=== PATIENT | female | born 1960 | race Caucasian/White ===

== ENCOUNTER 2017-03-12 11:08 | Outpatient (CLI) | payer OTHER | END 2017-03-12 11:09 | disposition critical access hospital (66) | DX: S06.9X9A Unspecified intracranial injury with loss of consciousness of unspecified duration, initial encounter (principal); M25.551 Pain in right hip; W20.8XXA Other cause of strike by thrown, projected or falling object, initial encounter; W18.39XA Other fall on same level, initial encounter; Y92.212 Middle school as the place of occurrence of the external cause; Y99.0 Civilian activity done for income or pay | CPT/HCPCS: A0425; A0429 ==

== ENCOUNTER 2017-03-12 11:27 | Emergency (ER) | payer OTHER ==
--- NOTE | 2017-03-12 11:31 | ED Physician Documentation ---
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 and it knocked wall chalkboard down and struck patient in evelyn) Where head injury occurred: Work Timing - onset: How many minutes ago (20) Location of injury: Front Symptoms improve with: Rest Similar symptoms before: Diagnosis, No diagnosis, Work up / diagnostics, Treatment, Follow up, Has not had sx before, Other Recently seen: Clinic, Emergency Dept, Admitted, Surgery, Transferred, Not recently seen, Other PD PAST MEDICAL HISTORY - Past Medical History Cardiovascular: None - Present Medications Home Medications: Ambulatory Orders Medication Instructions Recorded Confirmed Methocarbamol [Robaxin] 500 mg PO TID PRN #25 tablet 03/12/17 Nadolol 03/12/17 - Allergies Allergies/Adverse Reactions: Allergies Allergy/AdvReac Type Severity Reaction Status Date / Time epinephrine AdvReac Unknown Verified 03/12/17 11:37 PD ED PE NORMAL - Vitals Vital signs reviewed: Yes - General General: Alert and oriented X 3, No acute distress, Well developed/nourished - HEENT HEENT: PERRL, EOMI, Other (focal swelling in rounded lump left upper occiputal area. 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 ), considered differential (does sound slightly concussive with brief LOC and then confused/lightheaded for a few minutes at most. ), d/w patient Departure - Departure Disposition: 01 Home, Self Care Clinical Impression: Struck accidentally by falling object Qualifiers: Encounter type: initial encounter Qualified Code(s): W20.8XXA - Other cause of strike by thrown, projected or falling object, initial encounter Scalp contusion Qualifiers: Encounter type: initial encounter Qualified Code(s): S00.03XA - Contusion of scalp, initial encounter Mild concussion Qualifiers: Encounter type: initial encounter Loss of consciousness presence/duration: with LOC of 30 min or less Qualified Code(s): S06.0X1A - Concussion with loss of consciousness of 30 minutes or less, initial encounter Cervical strain, acute Qualifiers: Encounter type: initial encounter Qualified Code(s): S16.1XXA - Strain of muscle, fascia and tendon at neck level, initial encounter Condition: Stable Record reviewed to determine appropriate education?: Yes Instructions: ED Concussion, ED Sprain Strain Neck Prescriptions: Methocarbamol [Robaxin] 500 mg PO TID PRN #25 tablet PRN Reason: Spasms Comments: Stepwise return to activity with light activity/walking today, then up through brisk walking, light aerobic, then full aerobic over several days. Tylenol or Ibuprofen as needed for pains. Drink lots of fluids. Heat and gentle stretching for neck muscles. Add Robaxin muscle relaxant if needed for stiffness. Forms: Activity restrictions Discharge Date/Time: 03/12/17 13:18
[2017-03-12] MEDS ORDERED: ACETAMINOPHEN 325 MG TABLET PO STA (11:47)
[2017-03-12] MEDS ORDERED: IBUPROFEN 600 MG TABLET PO STA (11:47)
[2017-03-12] MEDS ORDERED: IBUPROFEN 600 MG TABLET PO ONE (11:50)
[2017-03-12] MEDS ORDERED: ACETAMINOPHEN 325 MG TABLET PO ONE (11:50)
--- NOTE | 2017-03-12 12:28 | CT Preliminary Report ---
Exam: CT Head W/O IMPRESSION: Normal head CT. [facility] SITE ID: [id number]
--- NOTE | 2017-03-12 12:31 | CT Report ---
EXAM: CT HEAD EXAM DATE: 03/12/2017 12:17 PM. CLINICAL HISTORY: Struck in head by dryerase board. Now with dizziness COMPARISON: None. TECHNIQUE: Multiaxial CT images were obtained from the foramen magnum to the vertex. IV contrast: Non e. Reformats: Coronal. In accordance with CT protocol optimization, one or more of the following dose reduction techniques w ere utilized for this exam: automated exposure control, adjustment of mA and/or KV based on patient s ize, or use of iterative reconstructive technique. FINDINGS: Parenchyma: No intraparenchymal hemorrhage. No evidence of mass, midline shift, or CT findings of inf arction. French-white differentiation is distinct. Extraaxial Spaces: Normal for age. No subdural or epidural collections identified. Ventricles: Normal in size and position. Sinuses: Imaged paranasal sinuses, orbits, and mastoids show no significant abnormality. Bones: No evidence of fracture or calvarial defect. Other: None. IMPRESSION: Normal head CT. [facility] Referring Provider Line: [phone] SITE ID: [id number]
--- NOTE | 2017-03-12 12:32 | CT Preliminary Report ---
Exam: CT Cervical Spine W/O IMPRESSION: No cervical spine fracture or listhesis. [facility] SITE ID: [id number]
--- NOTE | 2017-03-12 12:35 | CT Report ---
EXAM: CT CERVICAL SPINE WITHOUT CONTRAST DATE: 03/12/2017 12:18 PM HISTORY: Struck in head with dryerase board. Now with dizziness. COMPARISONS: None. TECHNIQUE: Thin-section axial images were acquired of the cervical spine without contrast. Post-proce ssing: Coronal and sagittal reformats. Other: None. In accordance with CT protocol optimization, one or more of the following dose reduction techniques w ere utilized for this exam: automated exposure control, adjustment of mA and/or KV based on patient s ize, or use of iterative reconstructive technique. FINDINGS: Alignment: Normal. No scoliosis or spondylolisthesis. Bones: No fracture or bone lesion. Interspace Levels/Facets: C1-C2: Unremarkable. C2-C3: Unremarkable. C3-C4: Unremarkable. C4-C5: Unremarkable. C5-C6: Degenerative disk disease. C6-C7: Unremarkable. C7-T1: Unremarkable. Musculature: Normal. No fatty atrophy. Other: The paravertebral and prevertebral soft tissues are normal. The lung apices are clear. IMPRESSION: No cervical spine fracture or listhesis. [facility] Referring Provider Line: [phone] SITE ID: [id number]
[2017-03-12 13:31] VITALS: BP 107/65
== END 2017-03-12 13:18 | disposition home or self-care (01) ==
LOC: EDUNIT# → ED 11:27
DX: S06.0X1A Concussion with loss of consciousness of 30 minutes or less, initial encounter (principal); S00.03XA Contusion of scalp, initial encounter; S16.1XXA Strain of muscle, fascia and tendon at neck level, initial encounter; W20.8XXA Other cause of strike by thrown, projected or falling object, initial encounter; Y93.89 Activity, other specified; Y92.219 Unspecified school as the place of occurrence of the external cause; Y99.0 Civilian activity done for income or pay
CPT/HCPCS: 70450; 72125; 99283; A9270

== ENCOUNTER 2017-06-02 07:59 | Outpatient (CLI) | payer OTHER ==
--- NOTE | 2017-06-02 13:33 | MRI Report ---
EXAM: MRI BRAIN AND INTERNAL AUDITORY CANAL (IAC) EXAM DATE: 06/02/2017 08:53 AM. CLINICAL HISTORY: 57-year-old with right facial and ear pain COMPARISON: CT head 03/12/2017. TECHNIQUE: Multiplanar, multisequence T1-weighted and fluid-sensitive MRI sequences of the brain and IACs were performed. Other: None. IV Contrast: None. FINDINGS: Brain Volume: Normal for age. Parenchyma/Dura: No acute parenchymal hemorrhage, mass, or midline shift. No white matter lesions tod ntified. No areas of restricted diffusion to suggest acute infarct. There are small foci of susceptib ility artifact seen within bilateral globus pallidus likely representing mineralization. No other are as of abnormal parenchymal susceptibility artifact seen. Internal Auditory Canals (IACs): Normal. No cranial nerve lesion or inflammatory process identified. Ventricles/Cisterns: No definite abnormal extra axial fluid collection/mass seen. Ventricles and sulc i appear age-appropriate. Cisterns are patent. Fluid is seen within Meckel's caves. Sinuses: Visualized paranasal sinuses, mastoid air cells, and middle ear cavities are clear. Semicirc ular canal cochlea appear normal and demonstrate normal fluid signal intensity. Orbits: Normal. Bones: Normal. Other: Visualized major intracranial flow voids appear maintained. IMPRESSION: 1. No acute infarct, intracranial hemorrhage, mass, or hydrocephalus. 2. No definite white matter lesions seen. 3. The cerebellopontine angles and internal auditory canals appear clear with no definite mass seen. 4. The semicircular canals and cochlea appear normal and demonstrate normal fluid signal intensity. [facility] Referring Provider Line: [phone] SITE ID: [id number]
== END 2017-06-02 08:00 | disposition home or self-care (01) ==
LOC: DI 07:59
PROVIDERS: ATTEND Family Medicine
DX: M79.2 Neuralgia and neuritis, unspecified (principal)
CPT/HCPCS: 70551

== ENCOUNTER 2017-07-29 13:55 | Outpatient (CLI) | payer OTHER ==
--- NOTE | 2017-07-29 17:46 | Ultrasound Report ---
LEFT BREAST ULTRASOUND: 07/29/2017 CLINICAL INDICATION: Palpable abnormality left upper-outer quadrant. TECHNIQUE: Real-time scanning was performed with banking representative static images obtained. Ultrasound of the palpable abnormality identified by the patient was performed. The palpable abnorma lity correlates with the ridge of fibrous parenchyma. No suspicious findings are appreciated. No di screte solid or cystic mass is seen. IMPRESSION: NEGATIVE EXAMINATION. RECOMMENDATION: ROUTINE ANNUAL SCREENING UNLESS OTHERWISE CLINICALLY INDICATED. BIRADS CATEGORY: 1, NEGATIVE. JOB #: [id number] EXT JOB #:[id number]
--- NOTE | 2017-07-30 09:18 | Mammography Report ---
DIGITAL DIAGNOSTIC BILATERAL MAMMOGRAM: 07/29/2017 CLINICAL INDICATION: Palpable abnormality left breast. COMPARISON: 07/01/2016, 07/01/2015, 06/20/2014, 06/15/2013, 06/10/2012, 2010, 06/04/2010. TECHNIQUE: Bilateral CC, laterally exaggerated CC, MLO views, left true lateral view. A marker was placed at the site of the palpable abnormality identified by the patient in the left upper-outer quadrant. The breasts again demonstrate heterogeneously dense fibroglandular parenchyma bilaterally. Coarse and punctate, typically benign calcifications are present. No suspicious masses, clustered microcalcifications, or regions of architectural distortion are identified. Specifically, no mammographic abnormality is seen at the site indicated by the marker in the left upper outer quadrant. Please also refer to left breast ultrasound of the same day. IMPRESSION: BENIGN FINDINGS. RECOMMENDATION: ROUTINE ANNUAL SCREENING UNLESS OTHERWISE CLINICALLY INDICATED. BIRADS CATEGORY 2, BENIGN FINDINGS. STANDARD QUALIFYING STATEMENTS 1. This examination was reviewed with the aid of Computed-Aided Detection (CAD). 2. A negative or benign imaging report should not delay biopsy if clinically suspicious findings are present. Consider surgical consultation if warranted. More than 5% of cancers are not identified by imaging. 3. Dense breasts may obscure an underlying neoplasm. MTDD
== END 2017-07-29 13:56 | disposition home or self-care (01) ==
LOC: DI 13:55
PROVIDERS: ATTEND Family Medicine
DX: N63 Unspecified lump in breast (principal)
CPT/HCPCS: 76642; 77066; 77080

== ENCOUNTER 2017-07-29 13:56 | Outpatient (CLI) | payer OTHER ==
--- NOTE | 2017-07-30 15:52 | DEXA Report ---
DEXA SCAN: 07/29/2017 CLINICAL INDICATION: Postmenopausal. TECHNIQUE: Dual energy x-ray absorptiometry (DXA) was performed on a [employer] system. Regions measured are the AP spine, femoral neck, and, if needed, forearm. COMPARISON: None. In accordance with the International Society for Clinical Densitometry (ISCD) guidelines, data from previous exams may be reanalyzed using current recommendations and techniques. This is done to allow a more accurate basis for comparison with the current study. FINDINGS The data for the lumbar spine is as follows: REGION BMD (g/cm/cm) T-SCORE Z-SCORE L1 1.152 0.2 1.4 L2 1.257 0.5 1.7 L3 1.261 0.5 1.7 L4 1.263 0.5 1.8 TOTAL 1.236 0.5 1.7 NOTE: All evaluable vertebrae are used for classification. The data for the hip is as follows: REGION BMD (g/cm/cm) T-SCORE Z-SCORE Neck 0.953 -0.6 0.7 TOTAL 0.906 -0.8 0.1 NOTE: The femoral neck or total proximal femur, whichever is lowest, is used for classification. IMPRESSION: THE WHO CLASSIFICATION BASED ON THE INTERNATIONAL REFERENCE STANDARD IS NORMAL. THE FRACTURE RISK IS NOT INCREASED. RECOMMENDATION: Patients with diagnosis of osteoporosis or osteopenia should have regular bone mineral density assessment. For those eligible for Medicare, routine testing is allowed once every 2 years. Testing frequency can be increased for patients who have rapidly progressing disease or for those who are receiving medical therapy to restore bone mass. COMMENT: World Health Organization (WHO) definitions for osteoporosis and osteopenia: NORMAL BMD: T-score at -1.0 or higher, fracture risk is low. OSTEOPENIA BMD: T-score between -1.0 and -2.5, fracture risk is increased. OSTEOPOROSIS BMD: T-score at -2.5 or lower, fracture risk high. National Osteoporosis Foundation recommends: 1. Obtain adequate dietary calcium (at least 1200 mg per day) and vitamin D (400 -800 international units per day). 2. Participate, as appropriate, in regular weightbearing and muscle- strengthening exercise. 3. Avoid tobacco use and reduce alcohol and caffeine intake. 4. For more detailed information see the website at www.NOF.org. MTDD
== END 2017-07-29 13:57 | disposition home or self-care (01) ==
LOC: DI 13:56
PROVIDERS: ATTEND Family Medicine
DX: M89.9 Disorder of bone, unspecified (principal)
CPT/HCPCS: 77080

== ENCOUNTER 2017-11-04 15:49 | Emergency (ER) | payer OTHER, BC ==
[2017-11-04] MEDS ORDERED: IBUPROFEN 400 MG TABLET PO STA (17:11)
--- NOTE | 2017-11-04 17:17 | ED Physician Documentation ---
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, hard to straighten leg out applied ice but has not taken any meds yet Review of Systems Musculoskeletal: reports: Extremity pain PD PAST MEDICAL HISTORY - Past Medical History Cardiovascular: None - Present Medications Home Medications: Ambulatory Orders Medication Instructions Recorded Confirmed Nadolol 20 mg PO DAILY 03/12/17 Carisoprodol [Soma] 350 mg PO Q8H PRN #10 tablet 11/04/17 Ibuprofen [Motrin] 400 mg PO Q6H PRN #30 tablet 11/04/17 Lidocaine Patch 5% [Lidoderm Patch] 1 each TOP DAILY PRN #10 patch 11/04/17 - Allergies Allergies/Adverse Reactions: Allergies Allergy/AdvReac Type Severity Reaction Status Date / Time epinephrine AdvReac Unknown Verified 03/12/17 11:37 - Social History Does the pt smoke?: No Smoking Status: Never smoker PD ED PE NORMAL - Vitals Vital signs reviewed: Yes - Extremities Extremities: Other (LLE - TTP L hamstring s palpable defect, able to but painful to extend her knee, knee flexion strength intact, MSV intact) Results - Vitals Vitals: Vital Signs - 24 hr 11/04/17 16:04 Temperature 36.8 C Heart Rate 65 Respiratory 18 Rate Blood Pressure 124/76 O2 Saturation 98 Oxygen O2 Source Room air Departure - Departure Disposition: Home, Self Care Clinical Impression: Hamstring injury Qualifiers: Encounter type: initial encounter Laterality: left Qualified Code(s): S76.302A - Unspecified injury of muscle, fascia and tendon of the posterior muscle group at thigh level, left thigh, initial encounter Condition: Good Instructions: ED Strain Muscle Ext Follow-Up: Jimi Branham DO [Primary Care Provider] - Prescriptions: Carisoprodol [Soma] 350 mg PO Q8H PRN #10 tablet PRN Reason: muscle spasm Ibuprofen [Motrin] 400 mg PO Q6H PRN #30 tablet PRN Reason: Pain Lidocaine Patch 5% [Lidoderm Patch] 1 each TOP DAILY PRN #10 patch PRN Reason: Pain Comments: I do not feel a defect in the hamstring muscle on palpation and the muscle contraction function seems intact - so hopefully this is just a bad strain and not a muscle tear Recommend motrin, ice, and lidoacine patches up to 12 hr a day as the primary treatment If the ain is severe at night when you are not going to be driving, you can also take the muscle relaxant soma but that may cause drowsiness so do not drive for 8-12 hr after taking Forms: Activity restrictions
[2017-11-04 17:39] VITALS: BP 120/66
== END 2017-11-04 17:38 | disposition home or self-care (01) ==
LOC: ED 15:49
DX: S76.302A Unspecified injury of muscle, fascia and tendon of the posterior muscle group at thigh level, left thigh, initial encounter (principal); X58.XXXA Exposure to other specified factors, initial encounter; Y93.89 Activity, other specified
CPT/HCPCS: 99283; A9270

== ENCOUNTER 2017-12-24 14:35 | Outpatient (CLI) | payer OTHER ==
--- NOTE | 2017-12-24 17:01 | MRI Report ---
EXAM: MRI PELVIS WITHOUT CONTRAST EXAM DATE: 12/24/2017 03:14 PM. CLINICAL HISTORY: Chronic posterior right pelvic pain. COMPARISON: None. TECHNIQUE: Multiplanar, multisequence T1-weighted and fluid-sensitive sequences of the pelvis without contrast. Other: None. FINDINGS: Bones and articular surfaces: No hip joint effusion. Mild cartilage thinning at the anterosuperior as pect of the bilateral hip joints. No focal articular cartilage defect. There is a small amount of sub chondral marrow edema at the roof of the right hip acetabulum, but this may be related to a process a t the anterior-inferior iliac spine. Visualized hip star appear intact. No paralabral cyst formation identified. Sacroiliac joints appear symmetric and unremarkable. Pubic symphysis unremarkable. There is prominent marrow edema centered at the right anterior-inferior iliac spine. Focal subcortical cys t formation immediately deep to the rectus femoris attachment. The appearance is most consistent with stress reaction at the origin of the right rectus femoris. Musculotendinous Structures: There is narrowing of the bilateral quadratus femoris spaces measuring a pproximately 5-6 mm bilaterally. There is prominent edema involving the left quadratus femoris. Trace amount of edema involving the right quadratus femoris. There also appears to be a high-grade avulsio n injury at the hamstrings origin at the left ischial tuberosity. An approximately 3 cm gap is seen b etween the bare surface of the ischial tuberosity and the inferiorly retracted portion of the semimem branosus tendon. The combined biceps femoris and semitendinosus origin are not definitely visualized within the [id number]. Right hamstrings origin demonstrates mild edema but otherwise appears intac t. The rectus femoris muscles appear symmetric and within normal limits. Miscellaneous: No significant pelvic free fluid. No lymphadenopathy. IMPRESSION: 1. Pronounced marrow edema which appears centered at the right anterior-inferior iliac spine suspicio us for stress reaction related to the intact-appearing right rectus femoris origin. 2. Evidence of left greater than right ischiofemoral impingement with pronounced edema in the left qu adratus femoris muscle. 3. High-grade avulsion at the left hamstrings origin. Approximately 3 cm distal retraction of the apollo imembranosus. Nonvisualization of the biceps femoris and semitendinosus origin within the field-of-vi ew. [facility] MUSCULOSKELETAL [facility]IOLOGY SECTION Referring Provider Line: [phone] SITE ID: [id number]
== END 2017-12-24 14:36 | disposition home or self-care (01) ==
LOC: DI 14:35
PROVIDERS: ATTEND Orthopaedic Surgery
DX: S76.391A Other specified injury of muscle, fascia and tendon of the posterior muscle group at thigh level, right thigh, initial encounter (principal); R60.0 Localized edema
CPT/HCPCS: 72195

== ENCOUNTER 2018-08-03 16:03 | Outpatient (CLI) | payer BC, OTHER ==
--- NOTE | 2018-08-04 10:21 | Mammography Report ---
Reason: BILAT SCREEN w LG Procedure Date: 08/03/2018 Accession Number: [id number] / [id number] Procedure: [facility] - Screening Mammo w/Lg CPT Code: FULL RESULT: EXAM: Screening Mammo w/Lg DATE: 08/03/2018 4:31 PM CLINICAL HISTORY: 58-year-old female with history of late childbearing and breast augmentation status post reversal as well as family history of breast cancer in a sister at age 42. TECHNIQUE: Bilateral CC and MLO views were obtained. COMPARISON: 07/21/2017, 07/01/2016, 07/01/2015, 06/20/2014. FINDINGS: The breasts demonstrate scattered fibroglandular densities bilaterally. No suspicious masses, clustered microcalcifications, or regions of architectural distortion are identified. IMPRESSION: Negative examination RECOMMENDATION: Routine annual screening unless otherwise clinically indicated. BIRADS CATEGORY 1: Negative STANDARD QUALIFYING STATEMENTS: 1. This examination was not reviewed with the aid of Computer-Aided Detection (CAD). 2. A negative or benign imaging report should not delay biopsy if clinically suspicious findings are present. Consider surgical consultation if warrented. More than 5% of cancers are not identified by imaging. 3. Dense breasts may obscure an underlying neoplasm. 4. This examination was reviewed with the aid of 3D breast imaging (tomosynthesis).
== END 2018-08-03 16:04 | disposition home or self-care (01) ==
LOC: DI 16:03
DX: Z12.31 Encounter for screening mammogram for malignant neoplasm of breast (principal); Z80.3 Family history of malignant neoplasm of breast
CPT/HCPCS: 77063; 77067

== ENCOUNTER 2019-05-13 21:13 | Emergency (ER) | payer BC, OTHER ==
[2019-05-13] MEDS ORDERED: HYDROcod/ACET 5/325 Prepack 4 PO STA (22:38)
--- NOTE | 2019-05-13 22:40 | ED Physician Documentation ---
PD HPI LOWER EXT INJURY - Stated complaint Stated Complaint: ANKLE PX - Chief complaint Chief Complaint: Ext Problem - History obtained from History obtained from: Patient - History of Present Illness PD HPI LOW EXT INJURY LOCATION: Right (Slip and fall with inversion injury of the right ankle in the garden this evening with moderate to severe pain. No other injuries. She is able to walk but barely.) Review of Systems Constitutional: reports: Reviewed and negative Cardiac: reports: Reviewed and negative Respiratory: reports: Reviewed and negative PD PAST MEDICAL HISTORY - Past Medical History Cardiovascular: None - Present Medications Home Medications: Ambulatory Orders Medication Instructions Recorded Confirmed Nadolol 20 mg PO DAILY 03/12/17 Carisoprodol [Soma] 350 mg PO Q8H PRN #10 tablet 11/04/17 Ibuprofen [Motrin] 400 mg PO Q6H PRN #30 tablet 11/04/17 Lidocaine Patch 5% [Lidoderm Patch] 1 each TOP DAILY PRN #10 patch 11/04/17 Hydrocodone/Acetaminophen 1 - 2 each PO Q6H PRN #14 tablet 05/13/19 [Hydrocodon-Acetaminophen 5-325] - Allergies Allergies/Adverse Reactions: Allergies Allergy/AdvReac Type Severity Reaction Status Date / Time Iodinated Contrast- Oral and Allergy Hives Verified 05/13/19 21:36 IV Dye epinephrine AdvReac Unknown Verified 05/13/19 21:34 - Social History Does the pt smoke?: No Smoking Status: Never smoker PD ED PE NORMAL - Vitals Vital signs reviewed: Yes - General General: Alert and oriented X 3, No acute distress - Extremities Extremities: Other (Right ankle is not tender to the proximal fibula but she is tender over about both malleoli with a lot of tenderness and swelling both laterally and medially but without deformity. No foot tenderness.) - Neuro Neuro: Alert and oriented X 3, Normal speech Results - Vitals Vitals: Vital Signs - 24 hr 05/13/19 21:32 Temperature 36.8 C Heart Rate 67 Respiratory 18 Rate Blood Pressure 131/71 H O2 Saturation 98 Oxygen O2 Source Room air - Rads (name of study) 3v R ankle Radiology: EMP read contemporaneously (Radiologist felt that there was no fracture, I do feel that there is a little chip fracture from the very distal fibula.) Procedures - Splint (location) R ankle Splint applied by: Tech Type of splint: Fiberglass, Short leg, Posterior Other: Patient tolerated well, No complications, Neurovascular intact. No: Crutches provided (she has crutches at home, given handwritten rx for knee scooter) Departure - Departure Disposition: Home, Self Care Clinical Impression: Fracture of distal fibula Qualifiers: Encounter type: initial encounter Fracture type: closed Fracture morphology: other fracture Laterality: right Qualified Code(s): S82.831A - Other fracture of upper and lower end of right fibula, initial encounter for closed fracture Condition: Good Record reviewed to determine appropriate education?: Yes Instructions: ED Fx Lower Ext Follow-Up: [facility] [Provider Group] - Within 1 week Prescriptions: Hydrocodone/Acetaminophen [Hydrocodon-Acetaminophen 5-325] 1 - 2 each PO Q6H PRN #14 tablet PRN Reason: pain Comments: Keep the splint on and dry, do not remove it. Follow-up with your orthopedic surgeon this week, call Wednesday for an appointment. Elevate as much as possible. Do not drink or drive while taking narcotic pain medication. Note that many narcotic pain relievers also contain Tylenol/acetaminophen. Please ensure that your total dose of acetaminophen from all sources does not exceed 3 g (3000 mg) per day. You may get constipated while on this medication. Take a stool softener such as Colace twice a day while you are on it. Also add an afbe-hzi-gjldcus laxative such as senna or MiraLAX on any day that you do not have a bowel movement. If you received a narcotic pain medication or sedative while in the emergency department, do not drive for the next 24 hours.
--- NOTE | 2019-05-13 22:43 | XRAY Report ---
Reason: pain and swelling after rolling ankle Procedure Date: 05/13/2019 Accession Number: [id number] / [id number] Procedure: XR - Ankle 3 View RT CPT Code: FULL RESULT: EXAM: RIGHT ANKLE RADIOGRAPHY EXAM DATE: 05/13/2019 10:28 PM. CLINICAL HISTORY: Pain and swelling after rolling ankle. COMPARISON: None. TECHNIQUE: 3 views. FINDINGS: Bones: Normal. No fractures or bone lesions. Joints: No subluxations. The ankle mortise is normally aligned. Soft Tissues: Lateral soft tissue swelling. IMPRESSION: No fracture identified. [facility]
[2019-05-13 23:14] VITALS: BP 124/64
== END 2019-05-13 23:27 | disposition home or self-care (01) ==
LOC: ED 21:13
DX: S82.831A Other fracture of upper and lower end of right fibula, initial encounter for closed fracture (principal); X50.1XXA Overexertion from prolonged static or awkward postures, initial encounter; Y93.01 Activity, walking, marching and hiking; Y92.007 Garden or yard of unspecified non-institutional (private) residence as the place of occurrence of the external cause
CPT/HCPCS: 29515; 99283

== ENCOUNTER 2019-05-17 11:05 | Outpatient (CLI) | payer BC, OTHER ==
--- NOTE | 2019-05-17 13:24 | Mammography Report ---
Reason: MASTODYNIA,BREAST TENDERNESS Procedure Date: 05/17/2019 Accession Number: [id number] / [id number] Procedure: CHRISTIAN - Diagnostic Dig Bilat CPT Code: FULL RESULT: EXAM: Diagnostic Dig Bilat DATE: 05/17/2019 12:17 PM CLINICAL HISTORY: Breast pain. Diagnostic examination. History of late childbearing. Family history of breast cancer in the sister at the age of 45. TECHNIQUE: (B) - Bilateral CC, laterally exaggerated CC, MLO views were obtained. Bilateral ML views are obtained. COMPARISON: 08/03/2018 through 07/01/2015. PARENCHYMAL PATTERN: (D) - The breast(s) demonstrate(s) heterogeneously dense fibroglandular parenchyma. FINDINGS: There are no suspicious masses, calcifications, or areas of distortion. IMPRESSION: Negative examination. BI-RADS category 1. RECOMMENDATION: (ANNUAL) - Recommend routine annual screening mammography. BI-RADS CATEGORY: (1) - Negative. STANDARD QUALIFYING STATEMENTS: 1. This examination was not reviewed with the aid of Computer-Aided Detection (CAD). 2. A negative or benign imaging report should not preclude biopsy if clinically suspicious findings are present. 3. Dense breasts may obscure an underlying neoplasm. 4. This examination was reviewed with the aid of 3D breast imaging (tomosynthesis).
== END 2019-05-17 11:06 | disposition home or self-care (01) ==
LOC: DI 11:05
PROVIDERS: ATTEND Physician Assistant
DX: N64.4 Mastodynia (principal); Z80.3 Family history of malignant neoplasm of breast
CPT/HCPCS: 77062; 77066

== ENCOUNTER 2019-06-21 10:14 | Outpatient (CLI) | payer BC, OTHER ==
[2019-06-21 11:58] LABS: BASOPHILS % (AUTO) 0.9 %; EOSINOPHILS # (AUTO) 0.1 10^3/uL (0.0-0.7); EOSINOPHILS % (AUTO) 1.4 %; HGB - HEMOGLOBIN 11.9 g/dL (12.0-16.0); LYMPHOCYTES # (AUTO) 1.6 10^3/uL (1.5-3.5); LYMPHOCYTES % (AUTO) 47.1 %; MEAN CORPUSCULAR HEMOGLOBIN 34.3 pg (27.0-31.0); MEAN CORPUSCULAR HGB CONC 35.8 g/dL (32.0-36.0); MEAN CORPUSCULAR VOLUME 95.7 fL (81.0-99.0); MEAN PLATELET VOLUME 9.3 fL (7.9-10.8); MONOCYTES # (AUTO) 0.4 10^3/uL (0.0-1.0); MONOCYTES % (AUTO) 11.2 %; NEUTROPHILS # (AUTO) 1.4 10^3/uL (1.5-6.6); NEUTROPHILS % (AUTO) 39.1 %; PLT - PLATELET COUNT 226 10^3/uL (130-450); RED BLOOD COUNT 3.47 10^6/uL (4.20-5.40); RED CELL DISTRIBUTION WIDTH 11.6 % (12.0-15.0); WHITE BLOOD COUNT 3.5 x10^3/uL (4.8-10.8)
[2019-06-21 12:45] LABS: ALBUMIN 4.1 g/dL (3.2-5.5); ALBUMIN/GLOBULIN RATIO 1.6 (1.0-2.2); ALKALINE PHOSPHATASE 70 IU/L (42-121); ALT ALANINE AMINOTRANSFERASE 17 IU/L (10-60); AST ASPARTATE AMINOTRANSFERASE 17 IU/L (10-42); BILIRUBIN,TOTAL 0.6 mg/dL (0.2-1.0); BUN - BLOOD UREA NITROGEN 17 mg/dL (6-20); CALCIUM 9.4 mg/dL (8.5-10.3); CARBON DIOXIDE - CO2 27 mmol/L (21-32); CHLORIDE 104 mmol/L (101-111); CHOL/HDL RATIO 3.2 (<4.4); CHOLESTEROL 240 mg/dL; CREATININE 0.7 mg/dL (0.4-1.0); GFR - MDRD 86 (>89); GLUCOSE 97 mg/dL (70-100); HDL CHOLESTEROL 76 mg/dL; LDL CHOLESTEROL,CALCULATED 156 mg/dL; LDL/HDL RATIO 2.1 (<4.4); SODIUM 138 mmol/L (135-145); TOTAL PROTEIN 6.7 g/dL (6.7-8.2); VLDL CHOLESTEROL 8 mg/dL
== END 2019-06-21 23:59 | disposition home or self-care (01) ==
LOC: LAB.WCP 10:14
PROVIDERS: ATTEND Family Medicine
DX: Z00.00 Encounter for general adult medical examination without abnormal findings (principal); I45.81 Long QT syndrome; M89.9 Disorder of bone, unspecified; N95.1 Menopausal and female climacteric states; M19.90 Unspecified osteoarthritis, unspecified site; E78.5 Hyperlipidemia, unspecified
CPT/HCPCS: 36415; 80053; 80061; 83721; 84443; 85025

== ENCOUNTER 2019-10-05 16:05 | Outpatient (CLI) | payer BC, OTHER ==
--- NOTE | 2019-10-09 08:37 | DEXA Report ---
Reason: BONE DISEASE Procedure Date: 10/05/2019 Accession Number: [id number] / [id number] Procedure: DEX - Dexa Spine and/or Hip CPT Code: Final Report FULL RESULT: EXAM: Dexa Spine and/or Hip DATE: 10/05/2019 4:33 PM CLINICAL HISTORY: BONE DISEASE TECHNIQUE: Dual energy x-ray absorptiometry (DXA) was performed on a [employer] System. Regions measured are the AP Spine, femoral neck, and if needed forearm. COMPARISON: 07/21/2017. In accordance with the International Society for Clinical Densitometry (ISCD) guidelines, data from previous exams may be reanalyzed using current recommendations and techniques. This is done to allow a more accurate basis for comparison with the current study. FINDINGS: The data for the lumbar spine is as follows: BMD (g/cm/cm) T-SCORE Z-SCORE REGION L1 1.077 -0.4 0.9 L2 1.139 -0.5 0.9 L3 1.145 -0.5 0.9 L4 1.162 -0.3 1.1 TOTAL 1.133 -0.4 1.0 NOTE: All evaluable vertebrae are used for classification The data for the hip is as follows: BMD (g/cm/cm) T-SCORE Z-SCORE REGION Neck 0.843 -1.4 0.0 TOTAL 0.851 -1.2 -0.2 NOTE: The femoral neck or total proximal femur, whichever is lowest, is used for classification. DXA RESULTS SUMMARY: Spine SCAN DATE AGE BMD CHANGE VS CHANGE VS PREVIOUS PREVIOUS % 11/05/2019 [age] 1.133 -0.103* -8.3* 07/29/2017 57.5 1.236 * Denotes significant change at the 95% confidence level. Denotes dissimilar scan types or analysis methods. DXA RESULTS SUMMARY: Hip SCAN DATE AGE BMD CHANGE VS CHANGE VS PREVIOUS PREVIOUS % 11/05/2019 59.7 0.851 -0.055* -6.1* 07/29/2017 57.5 0.906 * Denotes significant change at the 95% confidence level. Denotes dissimilar scan types or analysis methods. IMPRESSION: THE WHO CLASSIFICATION BASED ON THE INTERNATIONAL REFERENCE STANDARD IS OSTEOPENIA. THE FRACTURE RISK IS INCREASED. RECOMMENDATION: Patients with diagnosis of osteoporosis or osteopenia should have regular bone mineral density assessment. For those eligible for Medicare, routine testing is allowed once every 2 years. Testing frequency can be increased for patients who have rapidly progressing disease or for those who are receiving medical therapy to restore bone mass. COMMENT: World Health Organization (WHO) definitions for osteoporosis and osteopenia: NORMAL BMD: T-score at -1.0 or higher, fracture risk is low OSTEOPENIA BMD: T-score between -1.0 and -2.5, fracture risk is increased. OSTEOPOROSIS BMD: T-score at -2.5 or lower, fracture risk is high. National Osteoporosis Foundation recommends: 1. Obtain adequate dietary calcium (at least 1200 mg per day) and vitamin D (400-800 international units per day). 2. Participate, as appropriate, in regular weightbearing and muscle-strengthening exercise. 3. Avoid tobacco use and reduce alcohol and caffeine intake. 4. For more detailed information see the website at www.NOF.org.
== END 2019-10-05 16:06 | disposition home or self-care (01) ==
LOC: DI 16:05
PROVIDERS: ATTEND Family Medicine
DX: M85.89 Other specified disorders of bone density and structure, multiple sites (principal)
CPT/HCPCS: 77080

== ENCOUNTER 2019-12-29 07:08 | Outpatient (CLI) | payer OTHER ==
--- NOTE | 2020-01-01 04:08 | Ultrasound Report ---
Reason: NECK PAIN,LEFT Procedure Date: 12/29/2019 Accession Number: [id number] / [id number] Procedure: US - Head or Neck Soft Tissue CPT Code: Final Report FULL RESULT: EXAM: NECK/SOFT TISSUE/THYROID ULTRASOUND EXAM DATE: 12/29/2019 07:38 AM. CLINICAL HISTORY: NECK PAIN, LEFT. COMPARISON: None. TECHNIQUE: Real time sonographic imaging of the thyroid and neck was performed by the air control/anti air warfare officer. Multiple construction representative static images were saved for review. FINDINGS: THYROID GLAND: Right Lobe: 4.1 x 1.2 x 1.1 cm, volume 2.8 cc. Normal background echotexture. Right Lobe Nodules: None. Left Lobe: 4.1 x 0.9 x 1.2 cm, volume 2.3 cc. Normal background echotexture. Left Lobe Nodules: None. Isthmus: 0.1 cm AP. Isthmic Nodules: None. LYMPH NODES: No adenopathy demonstrated in the central or lateral compartment. Largest lymph node on the right measures 3.2 x 0.6 x 1.1 cm and is located adjacent to submandibular gland. Largest lymph node on the left measures 1.7 x 0.6 x 1.2 cm. OTHER: No fluid collections identified. Parotid glands appear within normal limits without parotid duct dilation. IMPRESSION: 1. No significant abnormality to account for pain. 2. Normal thyroid. No nodules. 3. No adenopathy or fluid collection evident. RADIA
== END 2019-12-29 07:09 | disposition home or self-care (01) ==
LOC: DI 07:08
PROVIDERS: ATTEND Physician Assistant
DX: M54.2 Cervicalgia (principal)
CPT/HCPCS: 76536

== ENCOUNTER 2020-01-09 08:00 | Outpatient (CLI) | payer OTHER ==
[2020-01-09 12:17] LABS: BASOPHILS % (AUTO) 0.5 %; EOSINOPHILS # (AUTO) 0.1 10^3/uL (0.0-0.7); EOSINOPHILS % (AUTO) 1.8 %; HGB - HEMOGLOBIN 12.1 g/dL (12.0-16.0); LYMPHOCYTES # (AUTO) 1.9 10^3/uL (1.5-3.5); LYMPHOCYTES % (AUTO) 49.6 %; MEAN CORPUSCULAR HGB CONC 35.8 g/dL (32.0-36.0); MEAN CORPUSCULAR VOLUME 97.7 fL (81.0-99.0); MEAN PLATELET VOLUME 9.3 fL (7.9-10.8); MONOCYTES # (AUTO) 0.4 10^3/uL (0.0-1.0); MONOCYTES % (AUTO) 10.2 %; NEUTROPHILS # (AUTO) 1.4 10^3/uL (1.5-6.6); NEUTROPHILS % (AUTO) 37.6 %; PLT - PLATELET COUNT 266 10^3/uL (130-450); RED BLOOD COUNT 3.46 10^6/uL (4.20-5.40); RED CELL DISTRIBUTION WIDTH 11.8 % (12.0-15.0); WHITE BLOOD COUNT 3.8 x10^3/uL (4.8-10.8)
[2020-01-09 12:51] LABS: CHOL/HDL RATIO 2.9 (<4.4); CHOLESTEROL 221 mg/dL; HDL CHOLESTEROL 76 mg/dL; LDL CHOLESTEROL,CALCULATED 132 mg/dL; LDL/HDL RATIO 1.7 (<4.4); VLDL CHOLESTEROL 13 mg/dL
== END 2020-01-09 23:59 | disposition home or self-care (01) ==
LOC: LAB.WCP 08:00
PROVIDERS: ATTEND Physician Assistant
DX: D72.819 Decreased white blood cell count, unspecified (principal)
CPT/HCPCS: 36415; 80061; 83721; 85025

== ENCOUNTER 2020-04-18 10:01 | Outpatient (CLI) | payer OTHER ==
[2020-04-18 11:50] LABS: BASOPHILS % (AUTO) 0.7 %; HGB - HEMOGLOBIN 12.7 g/dL (12.0-16.0); LYMPHOCYTES # (AUTO) 1.6 10^3/uL (1.5-3.5); LYMPHOCYTES % (AUTO) 39.3 %; MEAN CORPUSCULAR HEMOGLOBIN 35.3 pg (27.0-31.0); MEAN CORPUSCULAR HGB CONC 36.5 g/dL (32.0-36.0); MEAN CORPUSCULAR VOLUME 96.7 fL (81.0-99.0); MEAN PLATELET VOLUME 9.4 fL (7.9-10.8); MONOCYTES # (AUTO) 0.5 10^3/uL (0.0-1.0); MONOCYTES % (AUTO) 11.5 %; NEUTROPHILS % (AUTO) 47.3 %; PLT - PLATELET COUNT 251 10^3/uL (130-450); RED CELL DISTRIBUTION WIDTH 11.4 % (12.0-15.0); WHITE BLOOD COUNT 4.2 x10^3/uL (4.8-10.8)
== END 2020-04-18 23:59 | disposition home or self-care (01) ==
LOC: LAB.WCP 10:01
PROVIDERS: ATTEND Physician Assistant
DX: D72.819 Decreased white blood cell count, unspecified (principal)
CPT/HCPCS: 36415; 85025

== ENCOUNTER 2020-04-29 15:18 | Outpatient (CLI) | payer OTHER ==
--- NOTE | 2020-04-29 15:44 | CT Report ---
PROCEDURE: HEAD WO INDICATIONS: NOISE EFFECTS ON BILATERAL INNER EARS TECHNIQUE: Noncontrast 4.5 mm thick angled axial sections acquired from the foramen magnum to the vertex. For r adiation dose reduction, the following was used: automated exposure control, adjustment of mA and/or kV according to patient size. COMPARISON: 06/02/2017 MRI brain; 03/12/2017 CT head FINDINGS: Image quality: Excellent. CSF spaces: Basal cisterns are patent. No extra-axial fluid collections. Ventricles are normal in size and shape. Brain: No midline shift. No intracranial masses or hemorrhage. French-white matter interface is norm al. Skull and face: Calvarium and visualized facial bones are intact, without suspicious lesions. Sinuses: Visualized sinuses and mastoids are clear. IMPRESSION: No acute intracranial finding or other CT finding to explain the patient's symptoms. Reviewed by: Khari Arellano MD on 04/29/2020 3:43 PM PDT Approved by: Khari Arellano MD on 04/29/2020 3:43 PM PDT Station ID: [id number]
== END 2020-04-29 15:19 | disposition home or self-care (01) ==
LOC: DI 15:18
PROVIDERS: ATTEND Nurse Practitioner Family
DX: H83.3X3 Noise effects on inner ear, bilateral (principal)
CPT/HCPCS: 70450

== ENCOUNTER 2020-06-27 07:00 | Outpatient (CLI) | payer OTHER | END 2020-06-27 23:59 | disposition home or self-care (01) | LOC: LAB.WCP 07:00 | PROVIDERS: ATTEND Family Medicine | DX: R51 Headache (principal); Z01.84 Encounter for antibody response examination | CPT/HCPCS: 36415; 85651; 86140; 86769 ==

== ENCOUNTER 2020-06-27 07:27 | Outpatient (CLI) | payer OTHER ==
--- NOTE | 2020-06-27 09:50 | MRI Report ---
PROCEDURE: Brain W/O INDICATIONS: Hearing loss, tinnitus TECHNIQUE: Noncontrast axial T1 spin echo, axial T2 fast spin echo, sagittal and axial FLAIR, coronal T2 fast sp in echo, axial gradient echo, axial diffusion and ADC through the brain. COMPARISON: None. FINDINGS: Image quality: Excellent. CSF Spaces: Basal cisterns are patent. No extra-axial fluid collections. Ventricles are normal in size and shape. Brain: No intracranial masses or hemorrhage. French/white matter interface is normal. Brainstem appe ars normal. Diffusion-weighted images demonstrate no acute ischemic insult. No chronic ischemic ins ults. Normal intravascular flow voids are present. Skull and face: Calvarium has normal marrow signal. Orbits appear normal. Sinuses: Sinuses and mastoids are clear. IMPRESSION: Unremarkable MRI of the brain. Reviewed by: Khari Arellano MD on 06/27/2020 9:49 AM PDT Approved by: Khari Arellano MD on 06/27/2020 9:49 AM PDT Station ID: [id number]
--- NOTE | 2020-06-27 10:02 | MRI Report ---
PROCEDURE: Angio Neck W/O (MRA) INDICATIONS: Hearing loss, tinnitus CONTRAST: None administered TECHNIQUE: Noncontrast [id number] MR angiogram of the neck vasculature performed. Sagittal/axial/coronal T1 spin echo and STIR. Axial/coronal/sagittal T1 fast spin echo with fat saturation through the neck. 3 -D maximum intensity projection reconstruction images generated and reviewed. COMPARISON: None. FINDINGS: Image quality: Excellent. Carotid system: Great vessels demonstrate a conventional anatomy as they arise from the aortic arch. The origins of the common carotid arteries appear normal. The calibers and courses of the common c arotid arteries are likewise normal. The carotid bifurcations appear normal bilaterally. The international manager al carotid arteries are widely patent up to the [place]. Posterior circulation: The origins of the vertebral arteries are unremarkable. The more superior po rtions of the vertebral arteries demonstrate normal course and caliber. Vertebral arteries join to f orm a normal appearing basilar artery. Miscellaneous: Subclavian arteries are patent throughout. Pre-contrast images through the neck demo nstrate no soft tissue abnormalities. IMPRESSION: Normal MR angiogram of the neck. Reviewed by: Khari Arellano MD on 06/27/2020 10:00 AM PDT Approved by: Khari Arellano MD on 06/27/2020 10:00 AM PDT Station ID: [id number]
--- NOTE | 2020-06-27 10:10 | MRI Report ---
PROCEDURE: Angio Brain W/O (MRA) INDICATIONS: Hearing loss, tinnitus TECHNIQUE: Noncontrast axial 3-D itxi-dr-rzlrda MR angiogram, with 3-dimensional maximum intensity projection (M IP) reformats of the internal carotid arteries and posterior circulation then performed. COMPARISON: None. FINDINGS: Image quality: Excellent. Anterior circulation: Intracranial internal carotid arteries demonstrate normal size and intralumina l flow signal. The flow within the paired anterior cerebral arteries is normal and symmetric. The f low within the middle cerebral arteries is normal and symmetric. The anterior communicating artery i s seen. No stenoses, occlusions, or aneurysms. Posterior circulation: Visualized portions of the vertebral arteries demonstrate normal caliber, and join to form a normal appearing basilar artery. The flow within the posterior cerebral arteries is normal and symmetric. No stenoses, occlusions, or aneurysms. IMPRESSION: Normal MR angiogram of the brain. Reviewed by: Khari Arellano MD on 06/27/2020 10:09 AM PDT Approved by: Khari Arellano MD on 06/27/2020 10:09 AM PDT Station ID: [id number]
== END 2020-06-27 07:28 | disposition home or self-care (01) ==
LOC: DI 07:27
PROVIDERS: ATTEND Family Medicine
DX: Z01.84 Encounter for antibody response examination (principal); R51 Headache; H91.90 Unspecified hearing loss, unspecified ear; H92.09 Otalgia, unspecified ear; H93.19 Tinnitus, unspecified ear
CPT/HCPCS: 36415; 70544; 70547; 70551; 85651; 86140; 86769

== ENCOUNTER 2020-06-27 12:46 | Outpatient (CLI) | payer OTHER ==
--- NOTE | 2020-06-28 09:08 | Mammography Report ---
BILATERAL DIGITAL SCREENING MAMMOGRAM 3D/2D: 06/27/2020 CLINICAL: Routine screening. Comparison is made to exams dated: 05/17/2019 mammogram, 08/03/2018 mammogram, 07/29/2017 ultrasound, mammogram, and 07/01/2016 mammogram - [facility]. The tissue of both breas ts is heterogeneously dense. This may lower the sensitivity of mammography. No significant masses, calcifications, or other findings are seen in either breast. There has been no significant interval change. IMPRESSION: NEGATIVE There is no mammographic evidence of malignancy. A 1 year screening mammogram is recommended. This exam was interpreted at Station ID: [id number]. NOTE: For mammograms, a report in lay terms will be sent to the patient. Approximately 15% of breast malignancies will not be visualized mammographically. In the management of a palpable breast mass, a negative mammogram must not discourage biopsy of a clinically suspicious lesion. Electronically Signed By: Dave mata/narciso:06/27/2020 16:01:55 ACR BI-RADS Category 1: Negative 3341F PARENCHYMAL PATTERN: (D) - The breast(s) demonstrate(s) heterogeneously dense fibroglandular paranju ma. BI-RADS CATEGORY: (1) - 1 RECOMMENDATION: (ANNUAL) - Recommend routine annual screening mammography. [id number] 1 year screening LATERALITY: (B)
== END 2020-06-27 12:47 | disposition home or self-care (01) ==
LOC: DI.N 12:46
DX: Z12.31 Encounter for screening mammogram for malignant neoplasm of breast (principal)
CPT/HCPCS: 77063; 77067

== ENCOUNTER 2020-09-17 16:03 | Outpatient (CLI) | payer OTHER ==
[2020-09-17 16:37] VITALS: BP 113/64
--- NOTE | 2020-09-17 16:37 | SLEEP CARE CONSULTATION ---
Information from patient questionnaire entered by Karlee Gee. I have reviewed and concur with the information entered by Karlee Gee. This document represents the service I personally performed and the decisions made by me, Opal Gutierrez ARNP. History of Present Illness Service Date and Time: 09/17/2020 1603 Reason for Visit: New patient Chief Complaint: reports: Unrefreshed sleep, Snoring, Excessive daytime sleepiness, Fatigue, Frequent awakenings at night. denies: Insomnia, Observed pauses in breathing Date of Onset: bruxism whole life, other symptoms 5 years Usual bedtime: 11 PM Time it takes to fall asleep: a few minutes Snores at night: Yes (I've been told so) Observed to quit breathing while asleep: No Sleeps alone due to snoring: Yes Number of times waking at night: Around 4 times Reasons for waking at night: reports: Choking, Snoring (when on her back for last 2 yrs), Gasping for air, Bathroom, Other (sometimes heart palpitations) Toss, Turn, or Twitch while sleeping: Yes (sometimes) Recalls having dreams: Yes Usually gets out of bed at: 6:30 AM Feels refreshed in the morning: No Morning headache: Yes (sometimes; 1-2 hrs in morning; fluctuates during the day 5x a week) Sleepy or fatigued during the day: Yes Ever fallen asleep while driving: No (pulled over) Takes day naps: No Prior sleep studies: No Additional HPI information: I had the pleasure of seeing CANDICE ANGELA today regarding the possibility of her having a sleep disorder. Her current complaints are snoring, frequent awakening at night, unrefreshed sleep, fatigue and excessive daytime sleepiness. - Parasomnia Symptoms Ever been unable to move upon waking from sleep: No Walks in sleep: Yes (as a child) Talks in sleep: Yes (as child and as adult) Ever acted out dreams in sleep: Yes Ever felt weak in the knees when startled or emotional: No Bothered by creepy, crawly, restless sensations in legs: No Problems with memory or concentration: Yes (both, especially with her vertigo) Subjective Initial Burchard Sleepiness Scale score: 17 (in 2019) Past Medical History Past Medical History: reports: Arrythmia, Fibromyalgia. 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 Patient is and lives in [place]. Have you smoked in the past 12 months: No Alcohol use: No Caffeine use: No Family History Family history of sleep disordered breathing: Yes (dad) Family Hx Sleep Apnea: Father: Snoring Allergies and Home Medications Drug allergies reviewed: Yes (iodinated contrast media, epinephrine or anything with QT elongation effect) Home medication list reviewed: Yes Allergy and home medication list: Nadalol 10 a day Rhinocort Allergy spray Mone 1/2 tablet at night Review of Systems Cardiovascular: reports: palpitations, irregular heart rate or pulse Neurological: reports: headaches, head trauma (mild concussion), gait or balance problems (balance) Ear/Nose/Throat: reports: nasal congestion, sinus problems, hoarseness, injury to nose, wisdom teeth removed. denies: nose bleeds, dry mouth/throat, tonsillectomy Endocrine: reports: sluggishness, too hot or cold Musculoskeletal: reports: joint pain Immunologic: reports: sneezing (runny nose), other (tinnitus, vertigo) Physical Exam Blood Pressure: 113/64 Cuff size: wrist Heart Rate: 63 O2 Saturation: 99 Height: 5 ft 6 in Weight: 127 lb Body Mass Index: 20.5 BMI Classification: Healthy weight Neck circumference: 12.5 (inches) Nostrils: patent to airflow Turbinates: normal Mouth and throat: narrow oropharynx Uvula visualization: 50% Mallampati Class II Tongue: enlarged in size with teeth anne on lateral edges Tonsils: 1+ Chin and jaw: normal size and position Neck: normal w/o lymphadenopathy or thyromegaly Heart: regular rate and rhythm Lungs: clear bilaterally Impression and Plan 1. Suspected Obstructive Sleep Apnea-Hypopnea Syndrome, as suggested by a history of snoring, gasping or choking in sleep, morning headache, frequent awakening during the night, unrefreshed sleep, cognitive impairment, and excessive daytime sleepiness. I reviewed with patient that a narrow oropharynx and obesity are common predisposing factors for obstructive sleep apnea-hypopnea syndrome. I recommend proceeding to polysomnography to confirm the diagnosis and to assess severity. If the patient has significant sleep disordered breathing, a manual CPAP titration study will also be performed to find the optimal treatment pressure. I informed the patient of what the sleep studies involve and after some discussion, obtained agreement to proceed. The pathophysiology of obstructive sleep apnea-hypopnea syndrome was discussed with the patient and health risks of cardiovascular and cerebrovascular disease if not treated. AAS brochure for obstructive sleep apnea-hypopnea syndrome given and reviewed. Risks of drowsy driving discussed in detail and patient advised to avoid long distance driving and to brisket puller at the first sign of drowsiness. Patient agreed to plan. * Schedule polysomnography +- manual CPAP titration study. * Avoid long distance driving or driving when feeling sleepy. * Avoid alcohol, sedative and muscle relaxant around bedtime. * Attempt to lose weight. * Review instructions provided by trained office staff on how to prepare for the sleep study. * Return for follow-up after sleep study completed. Visit Type: In Office Time Spent with Patient (minutes): 32 Provider Statement: I spent 100% of the Face to Face Visit with the patient with greater than 50% spent counseling the patient and coordination of care.
== END 2020-09-17 16:04 | disposition home or self-care (01) ==
LOC: SC 16:03
PROVIDERS: ATTEND Nurse Practitioner Family
DX: R06.83 Snoring (principal); R51.9 Headache, unspecified; G47.8 Other sleep disorders; R41.89 Other symptoms and signs involving cognitive functions and awareness; G47.10 Hypersomnia, unspecified
CPT/HCPCS: 99203; 99212

== ENCOUNTER 2020-11-19 19:45 | Outpatient (CLI) | payer OTHER | END 2020-11-19 19:46 | disposition home or self-care (01) | LOC: SC 19:45 | PROVIDERS: ATTEND Nurse Practitioner Family | DX: G47.33 Obstructive sleep apnea (adult) (pediatric) (principal); G47.63 Sleep related bruxism | CPT/HCPCS: 95810 ==

== ENCOUNTER 2020-11-26 15:30 | Outpatient (CLI) | payer OTHER ==
--- NOTE | 2020-11-26 16:00 | SLEEP CARE CONSULTATION ---
Information from patient questionnaire entered by Karlee Gee. I have reviewed and concur with the information entered by Karlee Gee. This document represents the service I personally performed and the decisions made by me, Opal Gutierrez ARNP. History of Present Illness Service Date and Time: 11/26/2020 1530 Initial Hancock Sleepiness Scale score: 17 (in 2020) Current Hancock Sleepiness Scale score: 16 Additional HPI information: CANDICE ANGELA returns for follow up and results of the recently performed polysomnography. I explained the pathophysiology behind obstructive sleep apnea. We then spent quite a bit of time discussing different treatment options. For mild obstructive sleep apnea, surgery and oral appliance are alternatives to nasal CPAP therapy but in moderate or severe cases, nasal CPAP is the most effective a nd reliable treatment. Because apnea is primarily in supine position, then positional management therapy could be effective. Methods discussed such as positioning with pillows, using a T-shirt with tennis balls in the back, and shown commercial products that have a pillow format on back to prevent supine sleep. I reviewed the impact of weight changes on sleep apnea and strongly recommended losing weight. After some discussion, the patient opted to go with the nasal CPAP therapy. Nasal autoCPAP set at [id number] will be ordered with rationale explained. A manual titration study will be ordered if unable to find optimal pressure with office adjustments. I explained how CPAP machine works with sample devices [employer]ics Dreamstation and [employer] [id number] and what to expect when using the machine. Using CPAP every night in order to get used to it was emphasized. Patient advised to put CPAP mask on before getting into bed so as not to fall asleep without CPAP. To assist acclimation to CPAP use, it could also be used for a short time during day while reading or watching TV. The patient was instructed to call the CPAP supplier to discuss any mechanical problem that may occur. If the mask given is uncomfortable or is difficult to keep on through the night even with adjustment, contact the CPAP supplier as many will replace with another mask style if notified before 30 days. If snoring or perceives is not getting enough air or too much air from the machine, notify this office. [facility] patient education PAP tips reviewed and given to patient. Patient counseled not drink alcohol less than 4 hours before bedtime as it can increase snoring and apnea. Patient was cautioned about risks of drowsy driving until sleepiness symptoms resolve. Sleep Study - Results Type of Sleep Study: Polysomnography Prior sleep studies: No Allergies and Home Medications Home medication list reviewed: Yes (no changes) Review of Systems Review of systems same as previous: Yes (no changes) Physical Exam Heart Rate: 62 O2 Saturation: 99 Height: 5 ft 6 in Weight: 127 lb Body Mass Index: 20.5 BMI Classification: Healthy weight Impression and Plan 1. Obstructive Sleep Apnea-Hypopnea Syndrome, mild, with lowest oxygen saturation of 78%. Obviously this is the cause of the patients symptoms of unrefreshed sleep, and excessive daytime sleepiness. Positive pressure therapy could benefit heart arrhythmia and fibromyalgia. As mentioned above, the patient will be started on nasal autoCPAP therapy with pressure set at 4-15 cmH2O. A manual titration study will be completed if unable to find optimal treatment pressure with office adjustments. Compliance guidelines also reviewed. A copy of compliance guidelines will be given for reference at check out. Because the apnea is more severe supine, I instructed to avoid sleeping supine using pillow positioning until able to start CPAP use. 2. Bruxism, treatment as needed. Follow up with dentist as needed. * Nasal auto CPAP therapy, pressure at 4-15 cm H2O. * Avoid alcohol consumption near bedtime. * Avoid supine sleep until using CPAP. * The patient is again cautioned about driving until sleepiness completely resolves. * Return one month after CPAP obtained. I will assess response to therapy and compliance at that time. Visit Type: In Office Time Spent with Patient (minutes): 21 Provider Statement: I spent 100% of the Face to Face Visit with the patient with greater than 50% spent counseling the patient and coordination of care.
== END 2020-11-26 15:31 | disposition home or self-care (01) ==
LOC: SC 15:30
PROVIDERS: ATTEND Nurse Practitioner Family
DX: G47.33 Obstructive sleep apnea (adult) (pediatric) (principal); G47.63 Sleep related bruxism
CPT/HCPCS: 99212; 99213

== ENCOUNTER 2020-11-29 16:07 | Outpatient (CLI) | payer OTHER ==
[2020-11-29 17:50] LABS: BASOPHILS % (AUTO) 0.6 %; EOSINOPHILS % (AUTO) 0.4 %; LYMPHOCYTES # (AUTO) 1.9 10^3/uL (1.5-3.5); LYMPHOCYTES % (AUTO) 39.9 %; MEAN PLATELET VOLUME 9.3 fL (7.9-10.8); MONOCYTES # (AUTO) 0.4 10^3/uL (0.0-1.0); MONOCYTES % (AUTO) 8.7 %; NEUTROPHILS # (AUTO) 2.4 10^3/uL (1.5-6.6); NEUTROPHILS % (AUTO) 50.2 %; PLT - PLATELET COUNT 233 10^3/uL (130-450); RED CELL DISTRIBUTION WIDTH 11.4 % (12.0-15.0); WHITE BLOOD COUNT 4.8 x10^3/uL (4.8-10.8)
[2020-11-29 18:01] LABS: ALBUMIN 4.7 g/dL (3.2-5.5); BILIRUBIN,TOTAL 0.8 mg/dL (0.2-1.0); CALCIUM 9.8 mg/dL (8.5-10.3); CREATININE 0.9 mg/dL (0.4-1.0); TOTAL PROTEIN 7.1 g/dL (6.7-8.2)
[2020-11-29 18:23] LABS: RED BLOOD COUNT 3.81 10^6/uL (4.20-5.40)
[2020-11-29 18:24] LABS: HGB - HEMOGLOBIN 12.3 g/dL (12.0-16.0); MEAN CORPUSCULAR HEMOGLOBIN 32.3 pg (27.0-31.0); MEAN CORPUSCULAR VOLUME 94.2 fL (81.0-99.0)
[2020-11-29 18:25] LABS: MEAN CORPUSCULAR HGB CONC 34.3 g/dL (32.0-36.0)
[2020-11-29 18:27] LABS: HEMOGLOBIN A1c% 5.1 % (4.27-6.07)
== END 2020-11-29 23:59 | disposition home or self-care (01) ==
LOC: LAB.N 16:07
PROVIDERS: ATTEND Family Medicine
DX: R25.2 Cramp and spasm (principal)
CPT/HCPCS: 36415; 80053; 83036; 84443; 85025

== ENCOUNTER 2020-12-05 07:37 | Outpatient (CLI) | payer OTHER ==
[2020-12-05 12:37] LABS: BUN - BLOOD UREA NITROGEN 12 mg/dL (6-20); CARBON DIOXIDE - CO2 29 mmol/L (21-32); CHLORIDE 100 mmol/L (101-111); CK- CREATINE KINASE 86 IU/L (22-269); CREATININE 0.7 mg/dL (0.4-1.0); CRP - C-REACTIVE PROTEIN < 1.0 mg/dL (0-1.0); GLUCOSE 98 mg/dL (70-100)
[2020-12-07 14:57] LABS: ANA SCREEN NEGATIVE (NEGATIVE)
== END 2020-12-05 07:38 | disposition home or self-care (01) ==
LOC: LAB.N 07:37
PROVIDERS: ATTEND Family Medicine
DX: R25.2 Cramp and spasm (principal); M25.50 Pain in unspecified joint; M79.10 Myalgia, unspecified site
CPT/HCPCS: 36415; 80048; 82550; 85651; 86038; 86140

== ENCOUNTER 2020-12-10 08:00 | Outpatient (CLI) | payer OTHER ==
[2020-12-10 12:22] LABS: BILIRUBIN,URINE NEGATIVE (NEGATIVE); GLUCOSE, URINE (UA) NEGATIVE (NEGATIVE); KETONES,URINE (UA) NEGATIVE (NEGATIVE); LEUKOCYTE ESTERASE, URINE NEGATIVE (NEGATIVE); NITRITE,URINE NEGATIVE (NEGATIVE); OCCULT BLOOD,URINE NEGATIVE (NEGATIVE); PROTEIN,URINE NEGATIVE (NEGATIVE); UROBILINOGEN,URINE 0.2 (NORMAL) E.U./dL (NORMAL)
[2020-12-10 12:29] LABS: BACTERIA,URINE Few /HPF (None Seen); CLARITY,URINE CLEAR (CLEAR); RBC,URINE 0-5 /HPF (0-5); SQUAMOUS EPITHELIAL CELL,UR FEW Squamous (<= Few)
== END 2020-12-10 23:59 | disposition home or self-care (01) ==
LOC: LAB.R 08:00
PROVIDERS: ATTEND Family Medicine
DX: R30.0 Dysuria (principal)
CPT/HCPCS: 81001; 87086

== ENCOUNTER 2020-12-10 08:00 | Outpatient (CLI) | payer OTHER | END 2020-12-10 23:59 | disposition home or self-care (01) | LOC: LAB.WCP 08:00 | PROVIDERS: ATTEND Family Medicine | DX: M79.10 Myalgia, unspecified site (principal); R30.0 Dysuria | CPT/HCPCS: 36415; 81001; 81599 ==

== ENCOUNTER 2021-01-16 15:42 | Outpatient (CLI) | payer OTHER ==
--- NOTE | 2021-01-17 14:36 | Ultrasound Report ---
PROCEDURE: Ext Limited Non Vascular INDICATIONS: NODULE OF SKIN OF L LOWER LEG TECHNIQUE: Real-time scanning was performed of the left lower anterior extremity, with image documen tation. COMPARISON: None. FINDINGS: Sonographic images within the left torres demonstrates a focus of somewhat heterogeneous ech ogenicity measuring less than 5 mm. There is posterior shadowing Otherwise, unremarkable exam. IMPRESSION: Subcentimeter focus of heterogeneous echogenicity. This could represent a small focus of dystrophic soft tissue calcification or phlebolith.. Reviewed by: Arin Cordova MD on 01/17/2021 2:35 PM PDT Approved by: Arin Cordova MD on 01/17/2021 2:35 PM PDT Station ID: [id number]
== END 2021-01-16 15:43 | disposition home or self-care (01) ==
LOC: DI 15:42
PROVIDERS: ATTEND Physician Assistant Medical
DX: R22.42 Localized swelling, mass and lump, left lower limb (principal)

== ENCOUNTER 2021-02-06 10:18 | Outpatient (CLI) | payer OTHER ==
[2021-02-06 11:53] LABS: BASOPHILS % (AUTO) 0.7 %; EOSINOPHILS # (AUTO) 0.1 10^3/uL (0.0-0.7); EOSINOPHILS % (AUTO) 1.7 %; HCT - HEMATOCRIT 33.6 % (37.0-47.0); HGB - HEMOGLOBIN 12.6 g/dL (12.0-16.0); LYMPHOCYTES # (AUTO) 1.7 10^3/uL (1.5-3.5); LYMPHOCYTES % (AUTO) 41.4 %; MEAN CORPUSCULAR HEMOGLOBIN 37.1 pg (27.0-31.0); MEAN CORPUSCULAR HGB CONC 37.5 g/dL (32.0-36.0); MEAN CORPUSCULAR VOLUME 98.8 fL (81.0-99.0); MEAN PLATELET VOLUME 9.4 fL (7.9-10.8); MONOCYTES # (AUTO) 0.5 10^3/uL (0.0-1.0); MONOCYTES % (AUTO) 10.8 %; NEUTROPHILS # (AUTO) 1.9 10^3/uL (1.5-6.6); NEUTROPHILS % (AUTO) 45.2 %; PLT - PLATELET COUNT 245 10^3/uL (130-450); RED CELL DISTRIBUTION WIDTH 11.8 % (12.0-15.0); WHITE BLOOD COUNT 4.2 x10^3/uL (4.8-10.8)
[2021-02-06 12:50] LABS: ALBUMIN 4.5 g/dL (3.2-5.5); ALBUMIN/GLOBULIN RATIO 1.8 (1.0-2.2); BILIRUBIN,TOTAL 0.7 mg/dL (0.2-1.0); CALCIUM 9.8 mg/dL (8.5-10.3); CREATININE 0.7 mg/dL (0.4-1.0); POTASSIUM 3.8 mmol/L (3.5-5.0)
== END 2021-02-06 23:59 | disposition home or self-care (01) ==
LOC: LAB.WCP 10:18
PROVIDERS: ATTEND Family Medicine
DX: R61 Generalized hyperhidrosis (principal)
CPT/HCPCS: 36415; 80053; 83615; 85025

== ENCOUNTER 2021-04-09 13:56 | Outpatient (CLI) | payer OTHER ==
--- NOTE | 2021-04-10 13:49 | Ultrasound Report ---
ULTRASOUND OF RIGHT AXILLA: 04/09/2021 CLINICAL: Palpable right axillary lump and pain. Comparison is made to exams dated: 06/27/2020 mammogram, 05/17/2019 mammogram, and 08/03/2018 mammogram - [facility]. Color flow and real-time ultrasound of the right axilla were performed. French scale images of the javier l-time examination were reviewed. There are benign normal lymph nodes in the right axilla that correlate with palpable abnormalities. IMPRESSION: BENIGN There is no sonographic evidence of malignancy. A 1 year screening mammogram is recommended. Future imaging is recommended as follows: 06/28/2021 sc reening mammogram. This exam was interpreted at Station ID: [id number]. Electronically Signed By: Bennie roach/narciso:04/09/2021 15:17:31 Ultrasound BI-RADS: 2 Benign BI-RADS CATEGORY: (2) - 2 RECOMMENDATION: (ANNUAL) - Recommend routine annual screening mammography. [id number] 1 year screening LATERALITY: (B)
== END 2021-04-09 13:57 | disposition home or self-care (01) ==
LOC: DI 13:56
PROVIDERS: ATTEND Physician Assistant Medical
DX: R22.31 Localized swelling, mass and lump, right upper limb (principal)

== ENCOUNTER 2021-04-18 07:00 | Outpatient (CLI) | payer OTHER | END 2021-04-18 23:59 | disposition home or self-care (01) | LOC: LAB.N 07:00 | PROVIDERS: ATTEND Physician Assistant Medical | DX: R61 Generalized hyperhidrosis (principal) | CPT/HCPCS: 81599; 82384 ==

== ENCOUNTER 2021-04-29 08:21 | Outpatient (CLI) | payer OTHER ==
--- NOTE | 2021-04-29 12:33 | MRI Report ---
PROCEDURE: Brain W/O INDICATIONS: POLYNEUROPATHY TECHNIQUE: Noncontrast axial T1 spin echo, axial T2 fast spin echo, sagittal and axial FLAIR, coronal T2 fast sp in echo, axial gradient echo, axial diffusion and ADC through the brain. COMPARISON: MR Brain 06/27/20, 06/02/17, CT Head 04/29/20. FINDINGS: Image quality: Excellent. CSF Spaces: Basal cisterns are patent. No extra-axial fluid collections. Ventricles are normal in size and shape. Brain: No intracranial masses or hemorrhage. French/white matter interface is normal. Brainstem appe ars normal. Diffusion-weighted images demonstrate no acute ischemic insult. No chronic ischemic ins ults. Normal intravascular flow voids are present. Skull and face: Calvarium has normal marrow signal. Orbits appear normal. Sinuses: Sinuses and mastoids are clear. IMPRESSION: 1. Stable interval exam without acute intracranial process. Reviewed by: Arin Cordova MD on 04/29/2021 12:32 PM PDT Approved by: Arin Cordova MD on 04/29/2021 12:32 PM PDT Station ID: [id number]
== END 2021-04-29 08:22 | disposition home or self-care (01) ==
LOC: DI 08:21
PROVIDERS: ATTEND Physician Assistant Medical
DX: G62.9 Polyneuropathy, unspecified (principal)

== ENCOUNTER 2021-05-08 08:00 | Outpatient (CLI) | payer OTHER ==
[2021-05-08 14:16] LABS: CHOLESTEROL 233 mg/dL; HDL CHOLESTEROL 77 mg/dL; LDL CHOLESTEROL,CALCULATED 145 mg/dL; LDL/HDL RATIO 1.9 (<4.4); TRIGLYCERIDES 56 mg/dL; VLDL CHOLESTEROL 11 mg/dL
== END 2021-05-08 23:59 | disposition home or self-care (01) ==
LOC: LAB.WCP 08:00
PROVIDERS: ATTEND Family Medicine
DX: Z00.00 Encounter for general adult medical examination without abnormal findings (principal); E16.2 Hypoglycemia, unspecified
CPT/HCPCS: 36415; 80061; 81599; 83525; 83721; 83789; 84206; 84681

== ENCOUNTER 2021-05-13 15:24 | Outpatient (CLI) | payer OTHER ==
[2021-05-13 18:33] LABS: FREE T3 3.36 pg/mL (2.5-3.9)
[2021-05-13 18:34] LABS: FREE T4 (FREE THYROXINE) 0.94 ng/dL (0.58-1.64)
== END 2021-05-13 23:59 | disposition home or self-care (01) ==
LOC: LAB.WCP 15:24
PROVIDERS: ATTEND Family Medicine
DX: R53.83 Other fatigue (principal)
CPT/HCPCS: 36415; 84439; 84481

== ENCOUNTER 2021-06-25 11:50 | Outpatient (CLI) | payer OTHER ==
--- NOTE | 2021-06-26 13:25 | Mammography Report ---
BILATERAL DIGITAL SCREENING MAMMOGRAM 3D/2D: 06/25/2021 CLINICAL: Routine screening. Family history of breast cancer. Comparison is made to exams dated: 04/09/2021 ultrasound, 06/27/2020 mammogram, 05/17/2019 mammogram, mammogram, 07/29/2017 ultrasound, and 07/29/2017 mammogram - [facility]. The tissue of both breasts is heterogeneously dense. This may lower the sensitivity of mammography. No significant masses, calcifications, or other findings are seen in either breast. There has been no significant interval change. IMPRESSION: NEGATIVE There is no mammographic evidence of malignancy. A 1 year screening mammogram is recommended. This exam was interpreted at Station ID: [id number]. NOTE: For mammograms, a report in lay terms will be sent to the patient. Approximately 15% of breast malignancies will not be visualized mammographically. In the management of a palpable breast mass, a negative mammogram must not discourage biopsy of a clinically suspicious lesion. Electronically Signed By: Khari Arellano M.D., jr/narciso:06/25/2021 12:40:13 ACR BI-RADS Category 1: Negative 3341F PARENCHYMAL PATTERN: (D) - The breast(s) demonstrate(s) heterogeneously dense fibroglandular kenny chirinos. BI-RADS CATEGORY: (1) - 1 RECOMMENDATION: (ANNUAL) - Recommend routine annual screening mammography. [id number] 1 year screening LATERALITY: (B)
== END 2021-06-25 11:51 | disposition home or self-care (01) ==
LOC: DI.N 11:50
DX: Z12.31 Encounter for screening mammogram for malignant neoplasm of breast (principal)

== ENCOUNTER 2021-11-02 08:17 | Outpatient (CLI) | payer OTHER ==
--- NOTE | 2021-11-03 01:48 | Ultrasound Report ---
PROCEDURE: Abdomen Complete INDICATIONS: EPIGASTRIC PAIN TECHNIQUE: Real-time scanning was performed of the abdominal and retroperitoneal organs, with image documentatio n. COMPARISON: None. FINDINGS: Liver: The liver is slightly increased in echogenicity with coarse sonographic echotexture suggestive of fatty infiltration. There is a simple cyst within the left hepatic lobe measuring up to 1.0 cm. Gallbladder: No gallstones, gallbladder wall thickening, or pericholecystic fluid. Biliary ducts: Intrahepatic bile ducts are non-dilated. Extrahepatic bile duct caliber measures 2 m m. Normal is 6-7 mm or less in diameter, or 10 mm or less post-cholecystectomy. Pancreas: Visualized portions of the pancreas are sonographically normal. Spleen: Spleen is normal in size and homogeneous in echotexture. Kidneys: Right kidney measures 11.2 cm long; left kidney measures 11.2 cm long. No hydronephrosis. Within the superior pole the left kidney, there is an oval hypoechoic structure likely representing a cyst, measuring up to 1.3 x 0.9 x 0.9 cm. There is posterior acoustic enhancement. No internal vascu larity on color Doppler interrogation. There are slightly indistinct internal echoes. Aorta: Visualized aorta is normal in caliber at less than 3 cm. Iliacs: Proximal common iliac arteries are normal in caliber at less than 2.5 cm. IVC: Intrahepatic inferior vena cava is patent. Miscellaneous: No free abdominal fluid. IMPRESSION: 1. No evidence of cholelithiasis or cholecystitis. No biliary ductal dilatation. 2. Slightly increased hepatic echogenicity with coarse sonographic echotexture suggestive of mild fat ty infiltration. 3. Mildly complex cyst within the left kidney with a few indistinct internal echoes. If clinically in dicated, a follow-up ultrasound may be performed in 6 months to demonstrate stability. Reviewed by: Dave Aburto MD on 11/03/2021 1:47 AM PST Approved by: Dave Aburto MD on 11/03/2021 1:47 AM PST Station ID: [id number]
== END 2021-11-02 08:18 | disposition home or self-care (01) ==
LOC: DI 08:17
PROVIDERS: ATTEND Physician Assistant
DX: R10.13 Epigastric pain (principal); N28.1 Cyst of kidney, acquired

== ENCOUNTER 2022-01-21 09:58 | Outpatient (CLI) | payer OTHER ==
--- NOTE | 2022-01-21 10:48 | Ultrasound Report ---
PROCEDURE: Ext Limited Non Vascular INDICATIONS: LIPOMA SKIN TECHNIQUE: Real-time scanning was performed of the bilateral thigh soft tissues, with image document ation. COMPARISON: None. FINDINGS: No sonographic abnormality or mass is appreciated. IMPRESSION: No significant abnormality. Reviewed by: Sky Mcleod MD on 01/21/2022 10:47 AM PDT Approved by: Sky Mcleod MD on 01/21/2022 10:47 AM PDT Station ID: [id number]
== END 2022-01-21 09:59 | disposition home or self-care (01) ==
LOC: DI 09:58
PROVIDERS: ATTEND Family Medicine
DX: D17.30 Benign lipomatous neoplasm of skin and subcutaneous tissue of unspecified sites (principal)

== ENCOUNTER 2022-03-17 11:58 | Outpatient (CLI) | payer OTHER | END 2022-03-17 11:59 | disposition home or self-care (01) | LOC: LAB.N 11:58 | PROVIDERS: ATTEND Family Medicine | DX: Z53.9 Procedure and treatment not carried out, unspecified reason (principal) | CPT/HCPCS: 82175 ==

== ENCOUNTER 2022-05-26 08:08 | Outpatient (CLI) | payer OTHER ==
--- NOTE | 2022-05-26 09:38 | Ultrasound Report ---
PROCEDURE: Abdomen Complete INDICATIONS: ABN ABD US TECHNIQUE: Real-time scanning was performed of the abdominal and retroperitoneal organs, with image documentatio n. COMPARISON: None. FINDINGS: Liver: Slightly increased echotexture. Liver measures 15 cm. Main portal vein is hepatopedal at 33.5 cm/s. Left lobe cyst measuring 1.1 cm. Gallbladder: Within normal limits. Biliary ducts: Intrahepatic bile ducts are non-dilated. Extrahepatic bile duct caliber measures 3 m m. Normal is 6-7 mm or less in diameter, or 10 mm or less post-cholecystectomy. Pancreas: Visualized portions of the pancreas are sonographically normal. Spleen: Spleen is normal in size and homogeneous in echotexture. Kidneys: Kidneys are normal in size and echotexture. Right kidney measures 9.9 cm long; left kidney measures 11 cm long. No hydronephrosis or nephrolithiasis. No solid masses. Left superior pole cy st measuring up to 1.3 cm. Aorta: Visualized aorta is normal in caliber at less than 3 cm. Iliacs: Proximal common iliac arteries are normal in caliber at less than 2.5 cm. IVC: Intrahepatic inferior vena cava is patent. Miscellaneous: No free abdominal fluid. Narrowing and mildly elevated velocity of the left renal vein between the aorta and the SMA. IMPRESSION: No explanation identified for epigastric pain. Normal gallbladder and biliary tree. No hydronephrosis . Pancreas is within normal limits sonographically. Incidental note of left renal vein narrowing posterior to the SMA, which can be a normal incidental f inding, but is sometimes associated with pelvic venous congestion. Incidental left renal superior pole and left lobe liver cysts. Reviewed by: Nico Carlin MD on 05/26/2022 9:37 AM PDT Approved by: Nico Carlin MD on 05/26/2022 9:37 AM PDT Station ID: [id number]
== END 2022-05-26 08:09 | disposition home or self-care (01) ==
LOC: DI 08:08
PROVIDERS: ATTEND Nurse Practitioner
DX: R93.5 Abnormal findings on diagnostic imaging of other abdominal regions, including retroperitoneum (principal)

== ENCOUNTER 2022-07-01 13:12 | Outpatient (CLI) | payer OTHER ==
--- NOTE | 2022-07-02 10:34 | Mammography Report ---
BILATERAL DIGITAL SCREENING MAMMOGRAM 3D/2D: 07/01/2022 CLINICAL: Family history of breast cancer. Routine screening. Comparison is made to exams dated: 06/25/2021 mammogram, 04/09/2021 ultrasound, 06/27/2020 mammogram, mammogram, 08/03/2018 mammogram, and 07/29/2017 ultrasound - . Both breasts are heterogeneously dense, which may obscure small masses (category c / 51-75% glandula r tissue). No significant masses, calcifications, or other findings are seen in either breast. There has been no significant interval change. IMPRESSION: NEGATIVE There is no mammographic evidence of malignancy. A 1 year screening mammogram is recommended. Based on Tyrer-Cuzick model (a risk assessment model), the patient's lifetime risk is 29.8% and her 1 0 year risk is 13.3%. If a patient has an elevated risk, a more comprehensive evaluation should be co nsidered and/or a referral to a genetic counselor. The [place] [employer], [employer], and NCCN Guidelines advise the consideration of Breast MRI as an adjunct to screening mammo graphy in patients whose "Lifetime risk to develop breast cancer" is 20% or higher. This exam was interpreted at Station ID: [id number]. NOTE: For mammograms, a report in lay terms will be sent to the patient. Approximately 15% of breast malignancies will not be visualized mammographically. In the management of a palpable breast mass, a negative mammogram must not discourage biopsy of a clinically suspicious lesion. Electronically Signed By: Khari Arellano M.D., jr/narciso:07/01/2022 13:48:06 ACR BI-RADS Category 1: Negative 3341F PARENCHYMAL PATTERN: (D) - The breast(s) demonstrate(s) heterogeneously dense fibroglandular parenchy ma. BI-RADS CATEGORY: (1) - 1 RECOMMENDATION: (ANNUAL) - Recommend routine annual screening mammography. [id number] 1 year screening LATERALITY: (B)
== END 2022-07-01 13:13 | disposition home or self-care (01) ==
LOC: DI.N 13:12
DX: Z12.31 Encounter for screening mammogram for malignant neoplasm of breast (principal); Z80.3 Family history of malignant neoplasm of breast

== ENCOUNTER 2022-08-11 14:57 | Outpatient (CLI) | payer OTHER ==
--- NOTE | 2022-08-12 13:58 | Ultrasound Report ---
PROCEDURE: Pelvic w/Transvaginal INDICATIONS: DUB TECHNIQUE: Real-time scanning was performed of the pelvic organs, with image documentation. Additional endovagi nal scanning was necessary due to incomplete visualization of the adnexal and endometrial structures by transabdominal scanning. COMPARISON: Pelvic ultrasound, 01/13/2016. FINDINGS: Uterus: Uterus is anteverted and normal in size at 5.9 x 2.4 x 4.7 cm. The myometrium is heterogene ous. The endometrium measures 3.5 mm in combined thickness. There is a 0.8 x 0.6 x 1.0 cm intramura l fibroid in the right uterine wall. Nabothian cysts are seen in cervix. Ovaries: The right ovary measures 2.4 x 1.0 x 1.6 cm, with a calculated ovarian volume of 1.93 cc. The left ovary measures 2.1 x 0.8 x 0.9 cm, with a calculated ovarian volume of 0.8 cc. The ovaries have a normal sonographic appearance. Less than 12 follicles can be seen in each ovary. No adnexal masses are seen. Other: No pathologic free abdominal or pelvic fluid. IMPRESSION: 1. There is a small uterine fibroid in the right uterine wall. 2. Endometrium is within normal limits in thickness. 3. Nabothian cysts noted in cervix. Reviewed by: Az Juarez MD on 08/12/2022 1:57 PM PDT Approved by: Az Juarez MD on 08/12/2022 1:57 PM PDT Station ID: [id number]
== END 2022-08-11 14:58 | disposition home or self-care (01) ==
LOC: DI 14:57
PROVIDERS: ATTEND Nurse Practitioner
DX: D25.1 Intramural leiomyoma of uterus (principal); N88.8 Other specified noninflammatory disorders of cervix uteri

== ENCOUNTER 2022-08-31 09:52 | Outpatient (CLI) | payer OTHER ==
--- NOTE | 2022-08-31 16:04 | DEXA Report ---
PROCEDURE: Dexa Spine and/or Hip INDICATIONS: OSTEOPENIA TECHNIQUE: Dual energy x-ray absorptiometry (DXA) was performed on a Job36 System. Regions measur ed are the AP Spine, femoral neck, and if needed forearm. COMPARISON: 07/01/2015. FINDINGS: Lumbar Spine: Bone Mineral Density 1.081 g/cm/cm,T score -0.8. There is interval a 0.2% decrease in total lumbar spine bone mineral density. Left Hip: Bone Mineral Density 0.823 g/cm/cm,T score -1.5. There is interval 12.9% decrease in total left hip bone mineral density. Left Femoral Neck: Bone Mineral Density 0.823 g/cm/cm, T score -1.5. (T score greater or equal to -1.0: NORMAL) (T score from -1.1 to -2.4: OSTEOPENIA) (T score less than or equal to -2.5 to: OSTEOPOROSIS) Impression: Osteopenia. Patients with diagnosis of osteoporosis or osteopenia should have regular bone mineral density assess ment. For those eligible for Medicare, routine testing is allowed once every 2 years. Testing frequ ency can be increased for patients who have rapidly progressing disease or for those who are receivin g medical therapy to restore bone mass. Reviewed by: Maurizio Proctor MD on 08/31/2022 4:03 PM PDT Approved by: Maurizio Proctor MD on 08/31/2022 4:03 PM PDT Station ID: [id number]
== END 2022-08-31 09:53 | disposition home or self-care (01) ==
LOC: DI 09:52
PROVIDERS: ATTEND Internal Medicine Rheumatology
DX: M85.89 Other specified disorders of bone density and structure, multiple sites (principal)

== ENCOUNTER 2022-09-11 08:00 | Outpatient (CLI) | payer OTHER ==
[2022-09-12 01:05] LABS: BACTERIAL VAGINOSIS DNA NEGATIVE (NEGATIVE); CANDIDA GLABRATA DNA NEGATIVE (NEGATIVE); CANDIDA GROUP DNA NEGATIVE (NEGATIVE); CANDIDA KRUSEI DNA NEGATIVE (NEGATIVE); TRICHOMONAS VAGINALIS DNA NEGATIVE (NEGATIVE)
[2022-09-12 02:03] LABS: CHLAMYDIA TRACHOMATIS DNA NEGATIVE (NEGATIVE); NEISSERIA GONORRHOEAE DNA NEGATIVE (NEGATIVE)
== END 2022-09-11 23:59 | disposition home or self-care (01) ==
LOC: LAB.WC 08:00
PROVIDERS: ATTEND Obstetrics & Gynecology
DX: N89.8 Other specified noninflammatory disorders of vagina (principal)
CPT/HCPCS: 81514; 87491; 87591; 87661

== ENCOUNTER 2022-12-31 09:44 | Outpatient (CLI) | payer OTHER ==
[2022-12-31 12:54] LABS: FOLATE 20.35 ng/mL (5.90 - >24.8)
== END 2022-12-31 09:45 | disposition home or self-care (01) ==
LOC: LAB.N 09:44
PROVIDERS: ATTEND Nurse Practitioner
DX: G62.89 Other specified polyneuropathies (principal)
CPT/HCPCS: 36415; 82607; 82746; 84207

== ENCOUNTER 2023-01-21 14:35 | Outpatient (CLI) | payer OTHER | END 2023-01-21 14:36 | disposition home or self-care (01) | LOC: LAB 14:35 | PROVIDERS: ATTEND Naturopath | DX: Z53.9 Procedure and treatment not carried out, unspecified reason (principal) | CPT/HCPCS: 36415 ==

== ENCOUNTER 2023-01-22 12:43 | Outpatient (CLI) | payer OTHER | END 2023-01-22 12:44 | disposition home or self-care (01) | LOC: LAB 12:43 | PROVIDERS: ATTEND Naturopath | DX: M79.2 Neuralgia and neuritis, unspecified (principal) ==

== ENCOUNTER 2023-05-25 12:56 | Outpatient (CLI) | payer OTHER ==
--- NOTE | 2023-05-25 15:48 | Ultrasound Report ---
PROCEDURE: Ext Limited Non Vascular INDICATIONS: RIGHT LOWER LIMB MASS TECHNIQUE: Real-time scanning was performed of the right lower leg, with image documentation. COMPARISON: None. FINDINGS: No significant sonographic abnormality is seen at the area of clinical concern. No soft ti ssue mass or fluid collection is seen. IMPRESSION: No significant sonographic abnormality at the area of clinical concern. MRI could be per formed for further evaluation if symptoms persist. Reviewed by: Bennie Acosta MD on 05/25/2023 3:10 PM PDT Approved by: Bennie Acosta MD on 05/25/2023 3:10 PM PDT Station ID: [id number]
== END 2023-05-25 12:57 | disposition home or self-care (01) ==
LOC: DI 12:56
PROVIDERS: ATTEND Family Medicine
DX: R22.41 Localized swelling, mass and lump, right lower limb (principal)

== ENCOUNTER 2023-07-13 10:51 | Outpatient (CLI) | payer OTHER ==
--- NOTE | 2023-07-14 12:30 | Ultrasound Report ---
LIMITED ULTRASOUND OF RIGHT BREAST AND AXILLA: 07/13/2023 CLINICAL: Palpable right axilla lump. Comparison is made to exams dated: 07/13/2023 ultrasound, 07/13/2023 mammogram, 07/01/2022 mammogram, mammogram, 04/09/2021 ultrasound, and 06/27/2020 mammogram - [facility]. Color flow and real-time ultrasound of the right breast axilla were performed. French scale images of the real-time examination were reviewed. No significant abnormalities were seen sonographically in the right axilla. Normal lymph nodes are pr esent. IMPRESSION: NEGATIVE There are normal lymph nodes seen in the right axilla. No other findings. There is no sonographic evidence of malignancy. Return to annual mammogram screening schedule is recommended. Findings and recommendations were con veyed to the patient at time of exam. This exam was interpreted at Station ID: [id number]. Electronically Signed By: Leonie carranza/:07/13/2023 12:16:09 Ultrasound BI-RADS: 1 Negative BI-RADS CATEGORY: (1) - 1 Mammogram [id number] return to screening LATERALITY: (B)
--- NOTE | 2023-07-14 12:30 | Mammography Report ---
BILATERAL DIGITAL DIAGNOSTIC MAMMOGRAM 3D/2D WITH AXILLARY TAIL SPOT COMPRESSION: 07/13/2023 CLINICAL: Focal left breast pain. Palpable right axilla lump. Comparison is made to exams dated: 07/01/2022 mammogram, 06/25/2021 mammogram, 04/09/2021 ultrasound, mammogram, and 05/17/2019 mammogram - [facility]. Both breasts are heterogeneously dense, which may obscure small masses (category c / 51-75% glandular tissue). No significant masses, calcifications, or other findings are seen in either breast. Specifically, no finding to explain the patient's chronic left breast 6:00 pain and no finding to correspond to the p atient's chronic right axillary palpable abnormality. Normal right axillary nodes are present. Mammograms are otherwise stable. IMPRESSION: INCOMPLETE: NEEDS ADDITIONAL IMAGING EVALUATION There is no new abnormality seen in the right axilla to correspond with the palpable abnormality in t he right axilla. There is no abnormality seen in the left breast to correspond with the pain at 6 o' clock. Ultrasound is recommended for full evaluation of these areas. This was performed immediately followin g this exam. Based on Tyrer-Cuzick model (a risk assessment model), the patient's lifetime risk is 29.1% and her 1 0 year risk is 13.4%. If a patient has an elevated risk, a more comprehensive evaluation should be co nsidered and/or a referral to a genetic counselor. The [place], [employer], and NCCN Guidelines advise the consideration of Breast MRI as an adjunct to screening mammo graphy in patients whose "Lifetime risk to develop breast cancer" is 20% or higher. This exam was interpreted at Station ID: [id number]. NOTE: For mammograms, a report in lay terms will be sent to the patient. Approximately 15% of breast malignancies will not be visualized mammographically. In the management of a palpable breast mass, a negative mammogram must not discourage biopsy of a clinically suspicious lesion. Electronically Signed By: Leonie carranza/:07/13/2023 11:52:02 ACR BI-RADS Category 0: Incomplete 3340F PARENCHYMAL PATTERN: (D) - The breast(s) demonstrate(s) heterogeneously dense fibroglandular parenchy ma. BI-RADS CATEGORY: (0) - 0 Ultrasound [id number] Immediate follow-up LATERALITY: (B)
--- NOTE | 2023-07-14 12:30 | Ultrasound Report ---
LIMITED ULTRASOUND OF LEFT BREAST: 07/13/2023 CLINICAL: Intermittent pain in left breast. Comparison is made to exams dated: 07/13/2023 mammogram, 07/01/2022 mammogram, 06/25/2021 mammogram, 04/09/2021 ultrasound, 06/27/2020 mammogram, and 05/17/2019 mammogram - [facility]. Color flow ultrasound of the left breast 6-7 o'clock region was performed. French scale images of the real-time examination were reviewed. No significant abnormalities were seen sonographically in the left breast. Specifically, no finding to explain the patient's pain. IMPRESSION: NEGATIVE There is no sonographic correlate to the patient's pain and no evidence of malignancy. Return to annual mammogram screening schedule is recommended. Findings and recommendations were conveyed to the patient at time of exam. This exam was interpreted at Station ID: [id number]. Electronically Signed By: Leonie carranza/:07/13/2023 12:14:41 Ultrasound BI-RADS: 1 Negative BI-RADS CATEGORY: (1) - 1 Mammogram [id number] return to screening LATERALITY: (B)
== END 2023-07-13 10:52 | disposition home or self-care (01) ==
LOC: DI 10:51
PROVIDERS: ATTEND Nurse Practitioner
DX: N64.4 Mastodynia (principal); R92.8 Other abnormal and inconclusive findings on diagnostic imaging of breast

== ENCOUNTER 2023-08-18 17:11 | Outpatient (CLI) | payer OTHER ==
--- NOTE | 2023-08-19 20:02 | XRAY Report ---
PROCEDURE: Lumbar Spine Complete INDICATIONS: LUMBAGO WITH SCIATICA TECHNIQUE: 3 views of the lumbar spine were acquired. COMPARISON: None. FINDINGS: Bones: 5 fcw-opn-ycbtlhl vertebrae are present. No vertebral body compression fracture. Mild to mode rate multilevel degenerative changes including anterior osteophytosis, disc height loss and facet art hropathy, notably at L4-5 and L5-S1. Grade 1 anterolisthesis of L4 on L5 of approximately 4 mm. Sligh t levoconvex curvature of the lumbar spine and L4-L5. Moderate osseous neural foraminal narrowing at L5-S1. Soft tissues: Overlying bowel gas pattern is normal. No suspicious soft tissue calcifications. Vis ualized lung bases are clear. IMPRESSION: 1. No acute fracture. 2. Irte-lv-zrmusgln multilevel degenerative changes of the spine, notably at L4-5 and L5-S1. Grade 1 anterolisthesis of L4 on L5. 3. Moderate osseous neural foraminal narrowing at L5-S1. If symptoms persist, consider MRI for further evaluation. Reviewed by: Claudette Higginbotham MD on 08/19/2023 8:01 PM PDT Approved by: Claudette Higginbotham MD on 08/19/2023 8:01 PM PDT Station ID: [id number]
== END 2023-08-18 17:12 | disposition home or self-care (01) ==
LOC: DI 17:11
PROVIDERS: ATTEND Nurse Practitioner Family
DX: M54.40 Lumbago with sciatica, unspecified side (principal); M47.816 Spondylosis without myelopathy or radiculopathy, lumbar region; M47.817 Spondylosis without myelopathy or radiculopathy, lumbosacral region; M43.16 Spondylolisthesis, lumbar region; M48.07 Spinal stenosis, lumbosacral region

== ENCOUNTER 2023-12-10 12:22 | Outpatient (CLI) | payer OTHER ==
[2023-12-10 17:43] LABS: BASOPHILS % (AUTO) 0.7 %; EOSINOPHILS # (AUTO) 0.1 10^3/uL (0.0-0.7); EOSINOPHILS % (AUTO) 1.2 %; HCT - HEMATOCRIT 35.3 % (37.0-47.0); HGB - HEMOGLOBIN 12.6 g/dL (12.0-16.0); LYMPHOCYTES # (AUTO) 1.9 10^3/uL (1.5-3.5); LYMPHOCYTES % (AUTO) 46.4 %; MEAN CORPUSCULAR HGB CONC 35.7 g/dL (32.0-36.0); MEAN CORPUSCULAR VOLUME 98.1 fL (81.0-99.0); MEAN PLATELET VOLUME 9.3 fL (7.9-10.8); MONOCYTES # (AUTO) 0.4 10^3/uL (0.0-1.0); MONOCYTES % (AUTO) 10.4 %; NEUTROPHILS # (AUTO) 1.7 10^3/uL (1.5-6.6); NEUTROPHILS % (AUTO) 41.1 %; PLT - PLATELET COUNT 276 10^3/uL (130-450); RED CELL DISTRIBUTION WIDTH 11.6 % (12.0-15.0); WHITE BLOOD COUNT 4.1 x10^3/uL (4.8-10.8)
[2023-12-10 18:04] LABS: ALBUMIN 4.6 g/dL (3.2-5.5); ALBUMIN/GLOBULIN RATIO 1.8 (1.0-2.2); ALKALINE PHOSPHATASE 69 IU/L (42-121); ALT ALANINE AMINOTRANSFERASE 14 IU/L (10-60); AST ASPARTATE AMINOTRANSFERASE 18 IU/L (10-42); BILIRUBIN,TOTAL 0.7 mg/dL (0.2-1.0); BUN - BLOOD UREA NITROGEN 15 mg/dL (6-20); CALCIUM 10.1 mg/dL (8.5-10.3); CARBON DIOXIDE - CO2 31 mmol/L (21-32); CHLORIDE 102 mmol/L (101-111); CHOL/HDL RATIO 3.2 (<4.4); CHOLESTEROL 232 mg/dL; CK- CREATINE KINASE 100 IU/L (30-223); CREATININE 0.7 mg/dL (0.6-1.3); GFR - MDRD 85 (>89); GLUCOSE 90 mg/dL (74-104); HDL CHOLESTEROL 73 mg/dL; LDL CHOLESTEROL,CALCULATED 147 mg/dL; POTASSIUM 4.1 mmol/L (3.5-4.5); SODIUM 137 mmol/L (135-145); TOTAL PROTEIN 7.2 g/dL (6.4-8.9); TRIGLYCERIDES 59 mg/dL (48-352); VLDL CHOLESTEROL 12 mg/dL
[2023-12-10 18:16] LABS: THYROID STIMULATING HORMONE 1.48 uIU/mL (0.34-5.60)
== END 2023-12-10 12:23 | disposition home or self-care (01) ==
LOC: LAB.N 12:22
PROVIDERS: ATTEND Nurse Practitioner
DX: M62.81 Muscle weakness (generalized) (principal); R53.83 Other fatigue; E78.5 Hyperlipidemia, unspecified; G62.89 Other specified polyneuropathies
CPT/HCPCS: 36415; 80053; 80061; 82550; 82607; 83721; 84443; 85025

== ENCOUNTER 2023-12-10 14:07 | Outpatient (CLI) | payer OTHER | END 2023-12-10 14:08 | disposition home or self-care (01) | LOC: LAB 14:07 | PROVIDERS: ATTEND Internal Medicine | DX: G62.9 Polyneuropathy, unspecified (principal) | CPT/HCPCS: 82164 ==

== ENCOUNTER 2023-12-10 14:11 | Outpatient (CLI) | payer OTHER ==
--- NOTE | 2023-12-10 16:05 | XRAY Report ---
PROCEDURE: Chest 2V INDICATIONS: FIBER NEUROPATHY TECHNIQUE: 2 views of the chest were acquired. COMPARISON: None. FINDINGS: Surgical changes and devices: None. Lungs and pleura: No pleural effusions or pneumothorax. Lungs are clear. Mediastinum: Mediastinal contours appear normal. Heart size is normal. Bones and chest wall: No suspicious bony lesions. Overlying soft tissues appear unremarkable. IMPRESSION: No acute cardiopulmonary process. No radiographic evidence of sarcoidosis. Reviewed by: Elmer Osorio MD on 12/10/2023 4:04 PM [facility] Approved by: Elmer Osorio MD on 12/10/2023 4:04 PM [facility] Station ID: [id number]
== END 2023-12-10 14:12 | disposition home or self-care (01) ==
LOC: DI 14:11
PROVIDERS: ATTEND Internal Medicine
DX: G62.9 Polyneuropathy, unspecified (principal)

== ENCOUNTER 2024-05-29 11:02 | Outpatient (CLI) | payer MEDICARE, OTHER ==
--- NOTE | 2024-05-29 12:53 | XRAY Report ---
PROCEDURE: Hips w/Pelvis 2-3V BL INDICATIONS: POLYARTHRALGIA TECHNIQUE: 3 view(s) of the hip were acquired. COMPARISON: None. FINDINGS: Bones: No fractures or dislocations. No suspicious bony lesions. The visualized pelvic ring appear s intact. Soft tissues: No suspicious soft tissue calcifications or masses. IMPRESSION: No acute fracture. No osseous lesion. If symptoms and/or clinical suspicion for pathology continue, f urther assessment with repeat plain films, or advanced imaging (e.g., CT, MRI, or bone scan) is recom mended for further assessment. Reviewed by: Tamia Issa MD on 05/29/2024 12:51 PM PDT Approved by: Tamia Issa MD on 05/29/2024 12:51 PM PDT Station ID: [id number]
--- NOTE | 2024-05-29 12:54 | XRAY Report ---
PROCEDURE: Knee 3V BL INDICATIONS: POLYARTHRALGIA TECHNIQUE: 3 views of the knee(s) were acquired. COMPARISON: None. FINDINGS: Bones: No fractures or dislocations. No suspicious bony lesions. Soft tissues: No knee joint effusion. No suspicious soft tissue calcifications or masses. IMPRESSION: No acute fracture. No osseous lesion. If symptoms and/or clinical suspicion for pathology continue, f urther assessment with repeat plain films, or advanced imaging (e.g., CT, MRI, or bone scan) is recom mended for further assessment. Reviewed by: Tamia Issa MD on 05/29/2024 12:52 PM PDT Approved by: Tamia Issa MD on 05/29/2024 12:52 PM PDT Station ID: [id number]
== END 2024-05-29 11:03 | disposition home or self-care (01) ==
LOC: DI.N 11:02
PROVIDERS: ATTEND Nurse Practitioner Family
DX: M25.50 Pain in unspecified joint (principal)

== ENCOUNTER 2024-06-01 12:51 | Outpatient (CLI) | payer MEDICARE, OTHER ==
--- NOTE | 2024-06-02 09:38 | Ultrasound Report ---
LIMITED ULTRASOUND OF RIGHT BREAST AND AXILLA: 06/01/2024 CLINICAL: Focal right axilla pain. Comparison is made to exams dated: 06/01/2024 mammogram, 07/13/2023 ultrasound, 07/13/2023 mammogram, mammogram, 06/25/2021 mammogram, and 04/09/2021 ultrasound - [facility]. Color flow ultrasound of the right breast axilla was performed. French scale images of the real-time e xamination were reviewed. No significant abnormalities were seen sonographically in the right axilla. Specifically, no finding to explain the patient's pain. IMPRESSION: NEGATIVE There is no sonographic correlate to the patient's pain and no evidence of malignancy. Return to annual mammogram screening schedule is recommended. Findings and recommendations were conveyed to the patient at time of exam. This exam was interpreted at Station ID: [id number]. Electronically Signed By: Leonie carranza/:06/01/2024 15:13:54 letter sent: No_Letter Ultrasound BI-RADS: 1 Negative BI-RADS CATEGORY: (1) - 1 RECOMMENDATION: (ADDMAM) - Recommend additional mammographic views. [id number] return to screening LATERALITY: (B)
--- NOTE | 2024-06-02 09:38 | Ultrasound Report ---
LIMITED ULTRASOUND OF LEFT BREAST: 06/01/2024 CLINICAL: Focal left breast pain. Comparison is made to exams dated: 06/01/2024 mammogram, 07/13/2023 ultrasound, 07/13/2023 mammogram, mammogram, 06/25/2021 mammogram, and 05/17/2019 mammogram - [facility]. Ultrasound of the left breast 3 o'clock and 6 o'clock regions was performed. French scale images of t he real-time examination were reviewed. No significant abnormalities were seen sonographically in the left breast. Specifically, no finding to explain the patient's pain. IMPRESSION: NEGATIVE There is no sonographic correlate to the patient's pain and no evidence of malignancy. Return to annual mammogram screening schedule is recommended. Findings and recommendations were conveyed to the patient at time of exam. This exam was interpreted at Station ID: [id number]. Electronically Signed By: Leonie carranza/:06/01/2024 15:13:10 letter sent: No_Letter Ultrasound BI-RADS: 1 Negative BI-RADS CATEGORY: (1) - 1 RECOMMENDATION: (ADDMAM) - Recommend additional mammographic views. [id number] return to screening LATERALITY: (B)
--- NOTE | 2024-06-02 09:38 | Mammography Report ---
BILATERAL DIGITAL DIAGNOSTIC MAMMOGRAM 3D/2D: 06/01/2024 CLINICAL: Focal pain in left breast. Focal pain in right axilla. Comparison is made to exams dated: 07/13/2023 mammogram, 07/01/2022 mammogram, 06/25/2021 mammogram, mammogram, 05/17/2019 mammogram, and 08/03/2018 mammogram - [facility]. Both breasts are heterogeneously dense, which may obscure small masses (category c / 51-75% glandular tissue). No significant masses, calcifications, or other findings are seen in either breast. Specifically, no finding to explain the patient's multifocal, bilateral pain. Mammograms are otherwise stable. IMPRESSION: INCOMPLETE: NEEDS ADDITIONAL IMAGING EVALUATION Bilateral mammograms are stable. There is no abnormality seen in the right axilla to correspond with the pain in the right axilla. Th ere is no abnormality seen in the left breast to correspond with the pain at 3 o'clock. There is no abnormality seen in the left breast to correspond with the pain at 6 o'clock. Ultrasound is recommended for full evaluation of these areas . This was performed immediately followi ng this exam. Based on Tyrer-Cuzick model (a risk assessment model), the patient's lifetime risk is 28.3% and her 1 0 year risk is 13.4%. If a patient has an elevated risk, a more comprehensive evaluation should be co nsidered and/or a referral to a genetic counselor. The [place] [employer], [place] [employer], and NCCN Guidelines advise the consideration of Breast MRI as an adjunct to screening mammo graphy in patients whose "Lifetime risk to develop breast cancer" is 20% or higher. This exam was interpreted at Station ID: [id number]. NOTE: For mammograms, a report in lay terms will be sent to the patient. Approximately 15% of breast malignancies will not be visualized mammographically. In the management of a palpable breast mass, a negative mammogram must not discourage biopsy of a clinically suspicious lesion. Electronically Signed By: Leonie carranza/:06/01/2024 15:12:14 ACR BI-RADS Category 0: Incomplete 3340F PARENCHYMAL PATTERN: (D) - The breast(s) demonstrate(s) heterogeneously dense fibroglandular parenchy ma. BI-RADS CATEGORY: (0) - 0 Ultrasound [id number] Immediate follow-up LATERALITY: (B)
== END 2024-06-01 12:52 | disposition home or self-care (01) ==
LOC: DI 12:51
PROVIDERS: ATTEND Nurse Practitioner
DX: N64.4 Mastodynia (principal); R92.333 Mammographic heterogeneous density, bilateral breasts